=== PATIENT | female | born 1935 | race Caucasian/White ===

== ENCOUNTER 2019-06-26 09:47 | Emergency (ER) | payer MEDICARE, OTHER, SELFPAY ==
--- NOTE | 2019-06-26 09:49 | RAD_ITS ---
STUDY: X-RAY - PELVIS AND LEFT HIP REASON FOR EXAM: Female, 83 years old. FELL ON 06/20 WENT TO [facility] WITH LEFT HIP PAIN. SCANS OF HEAD BACK AND HIP NEGATIVE. PAIN TO HIP INCREASING UNABLE TO AMBULATE NOW HAVING CHEST PAIN TECHNIQUE: 3 views of the pelvis and hip. COMPARISON: None. FINDINGS: There is a non-specific bowel gas pattern. Normal visualized soft tissue structures. Disc space narrowing and degeneration in the lower lumbar spine. Normal bilateral iliac wings, sacroiliac joints and visualized sacrum. Normal bilateral superior and inferior pubic rami. There are degenerative changes of the pubic symphysis with articular narrowing and sclerosis. Normal bilateral ischial tuberosities. Normal visualized femoral head. Normal acetabulum. There is mild articular joint space narrowing of the hip. RAD/HIP, UNI W/ Pelvis 2-3 Views IMPRESSION: Degenerative changes. No fracture is seen. Electronically Signed: Reji Bonner, at 10:53 EST , Service support ,
--- NOTE | 2019-06-26 09:49 | ED.VIS.INJ ---
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 Reportedly she had a fall on June 20. She was seen at [facility] on Wednesday. Reportedly she had a scan of her head, images of her back and hip which were all determined to be normal. She presents because of inability to ambulate. She is complaining of left hip pain and pelvic pain. Patient is alert and oriented x3. She denies fever, chills night sweats. She denies cardiac respiratory symptoms. She denies GI symptoms. Prior similar symptoms: Yes Recent Illness/Hospitalization: Yes Past Medical History - Allergies and Home Meds Allergies/Adverse Reactions: Allergies No Known Allergies Allergy (Verified 06/26/19 09:54) Primary Care Physician: Justino Alvarado [Primary Care Provider] - Prior records reviewed: No - No old records for review Lives: Alone Alcohol: None Drugs: None Review of Systems General: Denies: Chills, Fever, Sweats Eyes: Denies: Visual changes - bilaterally, Blurred Vision - bilaterally, Diplopia ENT: Denies: Rhinorrhea, Sore throat Cardiovascular: Denies: Chest pain, Palpitations Respiratory: Denies: Dyspnea, Cough, Dyspnea on exertion Gastrointestinal: Denies: Nausea, Vomiting, Diarrhea Musculoskeletal: Reports: Back pain, Extremity Pain. Denies: Myalgias, Arthralgias, Neck pain, Swelling, -, - Neurological: Denies: Headache, Weakness, Parasthesia, Numbness Hematologic: Denies: Easy bruising, Easy bleeding Physical Exam Inital Vital Signs reviewed: Yes General: Well nourished, Well developed Head: Normocephalic, Trauma - There is ecchymosis above the left brow. Eyes: Perrl, EOMI. Negative for: Pale conjunctiva, Scleral icterus ENT: TM's clear, No hemotympanum or drainage, No trauma. Negative for: Nasal trauma, Nasal septal hematoma Neck: Nontender, Full ROM Cardiovascular: Regular rate, Regular rhythm, No murmurs, Normal S1, Normal S2 Respiratory: No distress, CTA bilaterally, Chest nontender Abdomen: Soft, Nontender, Nondistended, Normal bowel sounds Rectal: - - Pain palpation of the left ischio tuberosity and over the left greater trochanteric region. Bruising is noted lateral proximal left thigh. Back: Paraspinal Tenderness. Negative for: Nontender, CVA Tenderness - Right, CVA Tenderness - Left Skin: Normal color, No rash, Trauma Neurological: Alert, Oriented x3, Cranial nerves II-XII grossly intact, Normal Strength, Normal Sensation Psychological: Normal affect - Glascow Coma Scale Eye Opening: Spontaneous Motor: Obeys Commands Verbal: Oriented Coma Scale Total: 15 Diagnostic/Tx/Re-eval Chest X-Ray - ED: Read by ED Physician, - - Your x-ray of the hip reveals no evidence of fracture, subluxation or dislocation of the hip. The pelvis appears normal as well. 06/26/19 09:49 HIP, UNI W/ Pelvis 2-3 Views [RAD] Stat - EKG Initial EKG Interpretation: Sinus Rhythm - Normal sinus rhythm with a ventricular rate of 81. SD interval is 138 ms. QRS duration under 6 ms. QT T duration 402 ms. [place] is normal. The EKG is normal. - Medical Decision Making Pain images from [facility] and will repeat x-rays of the hip here since she is not able to ambulate. Will determine if she had plain films or CT of the hip. If she only had plain films and films today are negative as well will require imaging to evaluate for occult fracture since she will not ambulate. Since staff obtain an EKG because patient complained of left-sided chest pain. Patient was asked when the chest pain started. Chest pain started on June 22 and has been constant according to patient and family. There is no bruising noted to the left or right chest wall. There is no crepitus or subcutaneous air. Breath sounds were reassessed and they are equal. Patient was seen by case management. They request for patient to go home. The casework manager spoke to them about home health care. ED Disposition - Plan for ED Patient: Disposition: Home or Assisted Living Diagnosis: Contusion of left hip, subsequent encounter Instructions: Hip Contusion Referrals: Justino Alvarado [Primary Care Provider] - As Needed
[2019-06-26 09:50] VITALS: BP 178/52; PULSE 86; RESP 19; TEMP 36.4; O2SAT 93; BMI 24.5
--- NOTE | 2019-06-26 09:57 | EKG12_ITS ---
Test Reason : Blood Pressure : / mmHG Vent. Rate : 081 BPM Atrial Rate : 081 BPM P-R Int : 138 ms QRS Dur : 106 ms QT Int : 402 ms P-R-T Axes : 071 -28 068 degrees QTc Int : 466 ms Normal sinus rhythm Leftward Cooks Confirmed by DELMI CONNOLLY, JAYNE ([id number]), editor dictionary MATEUS SINCLAIR ([id number]) on 06/29/2019 1:32:26 PM Referred By: MARCIA Confirmed By:JAYNE AWAD MD
--- NOTE | 2019-06-26 10:02 | ED.RN ---
no old ekg's
[2019-06-26 11:48] VITALS: BP 160/60; PULSE 82; RESP 16; O2SAT 95
--- NOTE | 2019-06-26 12:21 | CM.ED ---
Social Work Consult: Discharge Planning Informant: Dr. Snyder Met with patient and patient son and daughter in room. Introduced self as well as group social worker role. Patient agreeable to meet with this group social worker. Patient currently lives at home alone in a 2-story home with x3 steps to enter the home. Patient had a fall about a week ago and patient family has been providing 24hr care since the fall. Patient stating to now ambulate with a walker or use a wheelchair for mobility. Patient stating to not have a medical alert system. This group social worker encouraging patient to set up a medical alert button. Patient family stating to be able to continue with 24hr care if patient does not need admission to the hospital as patient does not want to go to a residential. Patient stating to be in pain when moving. This group social worker educating patient and patient family on [employer], community resources, and basket braider list, provided written information on all above including medical alert information. Patient plans to discharge to home with family for continued 24hr care. Fox SHARIF, ECTOR
[2019-06-26 14:16] VITALS: PULSE 70; RESP 20; O2SAT 95
[2019-06-26 16:11] VITALS: BP 160/89; PULSE 89; RESP 16; O2SAT 98
== END 2019-06-26 16:11 | disposition home or self-care (01) ==
PROVIDERS: Emergency Provider Emergency Medicine; PCP Family Medicine
DX: S70.02XA Contusion of left hip, initial encounter (principal); R07.9 Chest pain, unspecified; W19.XXXA Unspecified fall, initial encounter; Y93.89 Activity, other specified; Y92.89 Other specified places as the place of occurrence of the external cause; Y99.8 Other external cause status
CPT/HCPCS: 73502; 93005; 99284; A4216

== ENCOUNTER 2019-06-30 19:12 | Inpatient (IN) | payer MEDICARE, OTHER, SELFPAY ==
[2019-06-30 19:13] VITALS: BP 135/60; PULSE 80; RESP 16; TEMP 36.3; O2SAT 93; BMI 20.1
--- NOTE | 2019-06-30 20:27 | HP.PCM_ITS ---
Problem List (1) Acetabular fracture Status: Acute Qualifiers: Encounter type: initial encounter Fracture type: closed Laterality: left (2) Inferior pubic ramus fracture Status: Acute Qualifiers: Encounter type: initial encounter Laterality: left History of Present Illness Date of Admission: 06/30/19 Chief Complaint: LEFT HIP PAIN The patient is a 83 year old F with a significant history of breast cancer status post surgery who fell about 10 days ago and was evaluated at [place] ED. Further he was seen at the hospital on 06/26/2019 where a hip and pelvis x- ray was unremarkable. Because of persistent pain patient went to her PCP who ordered a CT of her left hip. The CT showed left inferior pubic rami's fracture and medial lucency about the middle aspect of the acetabulum which was concerning for incomplete fracture versus nutrient foramen. Patient complained of excruciating left hip pain when she moves. Pain improves with rest. When she moves her pain is 10 out of 10. Because of the pain she is unable to do her activities of daily living. Patient lives by herself but with her recent fall and pain in her hip; her family has been coming over to help her. However her family, can not keep helping her since her family has to work. Past Medical History Medical History: Medical History (Last Reviewed 07/01/19 @ 02:13 by Newton Kapoor MD) Breast cancer C50.919 Allergies No Known Allergies Allergy (Verified 06/30/19 19:13) Home Medications: Ambulatory Orders Medication Instructions Recorded NK 06/26/19 Surgical History: appendectomy, - - surgery for breast cancer; Hemorrhoids surgery; oophrectomy (one ovary) Lives: Alone Smoking Status: Former smoker - last smoked about ten days ago Alcohol: None - *Family History Maternal History Items: Cancer Paternal History Items: - - Patient does not know of any paternal medical history Review of Systems Constitutional: Denies: Chills, Fever, Weight Change HEENT: Denies: Head Aches, Sinus Congestion, Sinus Drainage Cardiovascular: Reports: Edema - left ankle. Denies: Chest Pain, Palpitations Respiratory: Denies: Cough, Shortness of breath at rest, Sputum production Gastrointestinal: Denies: Abdominal Pain, Nausea, Vomiting Genitourinary: Denies: Dysuria Musculoskeletal: Reports: Joint Pain - left hip. Denies: Joint Tenderness Skin: Denies: Rash, Wounds Neurological: Denies: Numbness, Tingling, Focal weakness Psychiatric: Denies: Anxiety, Depression, Homicidal Ideations, Suicidal Ideations Hematologic/ Lymphatic: Denies: Easy Bruising, Easy Bleeding VTE Information - Inpt Only VTE Present on Admission: No VTE Mechan Device Prophylaxis: None VTE Pharm Prophylaxis ordered?: Yes Patient Problems: Active and Suspected Problems (Last Updated 06/30/19 @ 21:09 by Newton Kapoor MD) Acetabular fracture (Acute) Inferior pubic ramus fracture (Acute) - Physical Exam Vitals/I&O's: Vital Signs Temp Pulse Resp BP Pulse Ox 97.3 F L 80 16 135/60 H 93 06/30/19 19:13 06/30/19 19:13 06/30/19 19:13 06/30/19 19:13 06/30/19 19:13 Oxygen Delivery Method Room Air Weight: 49.895 kg Body Mass Index (BMI) 20.1 General: Alert, Oriented x3, Cooperative HEENT: Atraumatic, PERRLA, EOMI, Normocephalic Neck: Supple, No JVD, Negative Carotid Bruits Lungs: Clear to auscultation, Normal air movement Cardiovascular: Regular rate, Normal S1, Normal S2, No murmurs Abdomen: Bowel Sounds Present, Soft, Non Tender Extremities: Capillary Refill Less than 3 Seconds, Edema - left ankle, mild Skin: No rashes, No breakdown Musculoskeletal: No Tenderness to Palpation of Joints or Extremities Neurological: Cranial nerves II-XII grossly intact Psych/Mental Status: Normal Affect, Appropriate Assessment/Plan All Active Problems (Last Updated 06/30/19 @ 21:09 by Newton Kapoor MD) Acetabular fracture (Acute) Inferior pubic ramus fracture (Acute) The patient is a 83 year old F with a significant history of breast cancer status post surgery who fell about 10 days ago and with left inferior pubic rami's fracture and linear leniency about the medial aspect of the acetabulum concerning for incomplete fracture versus nutrient foramen. Left inferior pubic rami's fracture and probably incomplete left acetabulum Differential for incomplete left acetabulum fracture is nutrient foramen. Emergency department reported discussing the case with Dr. Bennett who recommended toe-touch weightbearing to left lower extremity. PT and OT to work with patient. Patient may need rehabilitation. Case management consult. Will place on scheduled Tylenol and PRN oxycodone. Offer oxycodone prior to PT and OT. Antiemetics and bowel protocol in place in the setting of starting narcotics. DVT Prophylaxis Subcutaneous Lovenox Code Visit OBSV E&M: 29712 Initial observation care L2
[2019-06-30 20:37] LABS: Absolute Lymphocyte Count 2.16 X10^3/uL (0.83-4.51); Absolute Neutrophil Count 4.9 X10^3/uL (2.0-7.7); Basophil# 0.04 X10^3/uL; Basophil% 0.5 % (0-1); Eosinophil# 0.35 X10^3/uL; Eosinophils% 4.2 % (0-5); Hematocrit 33.4 % (37-47); Hemoglobin 10.8 g/dL (12.0-15.0); Lymphocyte # 2.16 X10^3/ul (4.0); Lymphocyte % 26.2 % (19-41); Mean Corp Hgb Conc 32.3 g/dL (32-36); Mean Corpuscular Hgb 31.2 pg (27.0-32.0); Mean Corpuscular Volume 96.5 fL (81-99); Mean Platelet Vol. 9.3 fl (6.2-12.0); Monocyte# 0.76 X10^3/uL; Monocyte% 9.2 % (0-10); NRBC Flagged by Analyzer 0 % (0-5); Neutrophil # 4.91 X10^3/uL (2.7-7.7); Neutrophil % 59.4 % (47-70); Platelet Count 378 K/mm3 (150-450); RBC Distribution Width SD 46.1 fl (35.1-43.9); Red Blood Count 3.46 M/mm3 (4.2-5.4); White Blood Count 8.3 K/mm3 (4.4-11.0)
[2019-06-30 20:51] LABS: Anion Gap 4 (5-15); BUN 22 mg/dL (7-18); BUN/Creat Ratio 22.8 RATIO (10-20); Calcium,Total 9.4 mg/dL (8.5-10.1); Chloride 109 mmol/L (98-107); Creatinine, Serum 0.96 mg/dL (0.55-1.02); EST Glomerular Filtration Rate 59 mL/min (>60); Est Glom Filt Rate - Afr Amer 71 mL/min (>60); Estimated Creatinine Clearance 34.97 ml/min; Glucose 102 mg/dL (74-106); Sodium Level 142 mmol/L (136-145)
[2019-06-30 21:24] VITALS: BMI 22.2
[2019-06-30 22:02] VITALS: BP 157/64; PULSE 77; RESP 18; TEMP 36.9; O2SAT 93
[2019-06-30] MEDS: oxyCODONE 5 MG Tablet PO (22:19)
[2019-07-01] VITALS (9 sets, daily range): BP systolic 131–150; BP diastolic 47–64; PULSE 71–83; RESP 18; TEMP 36.7–37.2; O2SAT 87–98
[2019-07-01] MEDS: Acetaminophen 500 MG Tablet PO ×5 (00:44→23:50)
--- NOTE | 2019-07-01 01:29 | ED.VIS.GEN ---
History of Present Illness Chief Complaint: Lower Extremity Injury Informant: Patient, Family Onset: Days - 10 Narrative: Sent in by PCP for abnormal CT reporting from family pelvic fracture and left hip fracture. Mechanical fall 10 days ago at home. slip on kitchen. Baseline no ambulatory assistance, lives alone. Family has been with patient since fall, now using walker. Seen at [place] [facility] 3 days later, reports head CT xrays negative. Came to [place] ED 4 days ago with persistent left hip pain re-evaluated, reports re xray with no fracture. Patient went home after eval by case management with planned HHC. This has not been started per family. Patient has been able to ambulate, however, increasing pain. Seen PCP today, CT scan order reported results from [facility]. No new falls, no anticoagulants. Reports Rx norco written by PCP, has not taken. Review of reported obtained from [facility] notes left inferior pelvic rami fracture and questionable acetabular fracture vs. nutrient vessel. Prior similar symptoms: No Past Medical History - Allergies and Home Meds Allergies/Adverse Reactions: Allergies No Known Allergies Allergy (Verified 06/30/19 19:13) Past Medical History: - - denies Surgical History: appendectomy, - - surgery for breast cancer; Hemorrhoids surgery; oophrectomy (one ovary) Lives: Alone Smoking Status: Current every day smoker Alcohol: None - Family History Maternal Family History: Reports: Cancer Paternal Family History: Reports: - - Patient does not know of any paternal medical history Review of Systems General: Denies: Chills, Fever, Sweats Eyes: Denies: Visual changes - bilaterally, Diplopia ENT: Denies: Rhinorrhea, Sore throat Cardiovascular: Denies: Chest pain, Palpitations Respiratory: Denies: Dyspnea, Cough, Dyspnea on exertion Gastrointestinal: Denies: Abdominal pain, Nausea, Vomiting, Diarrhea, Melena, Hematochezia Genitourinary: Denies: Dysuria, Hematuria, Frequency Musculoskeletal: Reports: Arthralgias. Denies: Back pain, Extremity Pain Skin: Denies: Rash, Wounds Neurological: Denies: Headache, Weakness, Numbness Physical Exam Inital Vital Signs reviewed: Yes General: No Acute Distress, - - thin female Head: Normocephalic, Atraumatic Eyes: Perrl, EOMI ENT: Moist mucous membranes, No rhinorrhea Neck: Supple, Nontender Cardiovascular: Regular rate, Regular rhythm, No murmurs Respiratory: No distress, CTA bilaterally, Chest nontender Abdomen: Soft, Nontender, Nondistended, Normal bowel sounds Back: Nontender, Normal Inspection Extremities: No edema, - - LLE: TTP with hip movent, no deformities. RLE: pain with movement, no deformities. Skin: Normal color, No rash Neurological: Alert, Oriented x3, Cranial nerves II-XII grossly intact, Normal Strength, Normal Sensation Psychological: Normal affect, Normal Mood Diagnostic/Tx/Re-eval Abnormal Lab Results 06/30/19 06/30/19 19:30 19:30 WBC 8.3 RBC 3.46 L Hgb 10.8 L Hct 33.4 L MCV 96.5 MCH 31.2 MCHC 32.3 RDW Std Deviation 46.1 H RDW Coeff of Jamel 13.0 Plt Count 378 MPV 9.3 Immature Gran % (Auto) 0.500 Neut % (Auto) 59.4 Lymph % (Auto) 26.2 Dickens % (Auto) 9.2 Eos % (Auto) 4.2 Baso % (Auto) 0.5 Absolute Neuts (auto) 4.9 Absolute Lymphs (auto) 2.16 Nucleated RBC % 0 Sodium 142 Potassium 4.0 Chloride 109 H Carbon Dioxide 29.0 Anion Gap 4 L BUN 22 H Creatinine 0.96 Estim Creat Clear Calc 34.97 Est GFR (MDRD) Af Amer 71 Est GFR (MDRD) Non-Af 59 L BUN/Creatinine Ratio 22.8 H Glucose 102 Calcium 9.4 - Medical Decision Making After reviewing CT reports, concerns of lucency of acetabulum, d/w ortho Dr. Bennett, no surgical management, toe touch WB with walker. States no MRI required. D/w this with family, they state they work and cannot continue to care at home. Labs obtained. D/w hospitalist, Dr. Kapoor for admission for PT/OT eval and placed placement to rehab. ED Disposition - Plan for ED Patient: Disposition: Acute Care Hospital [facility] Diagnosis: Inferior pubic ramus fracture, possible acetabular fracture
[2019-07-01] MEDS: Enoxaparin 40 MG/0.4 ML Syringe SC (10:34)
--- NOTE | 2019-07-01 11:26 | PN_ITS ---
Patient Problems: Active and Suspected Problems (Last Reviewed 07/01/19 @ 02:13 by Newton Kapoor MD) Acetabular fracture (Acute) Inferior pubic ramus fracture (Acute) Reason for Visit: Follow-up on pelvic fracture Subjective: Patient was seen and examined. She complains of pain on moving. Denies any other complains. Vitals/I&O's: Vital Signs Temp Pulse Resp BP Pulse Ox 98.6 F 71 18 150/57 H 93 07/01/19 10:15 07/01/19 10:15 07/01/19 10:15 07/01/19 10:15 07/01/19 10:43 Oxygen Flow Rate (L/min) 1 Oxygen Delivery Method Room Air Weight: 55.1 kg Body Mass Index (BMI) 22.2 Intake and Output for Last 24 Hours 06/29/19 06/30/19 07/01/19 23:59 23:59 23:59 Intake Total 200 / 200 Output Total 300 / 300 Balance -100 / -100 General: Alert, Oriented x3, Cooperative, No apparent distress, - - cachetic, in mild distress HEENT: Atraumatic, PERRLA, EOMI, Normocephalic Oral: Moist Mucosa Neck: Supple Lungs: Clear to auscultation, Normal air movement Cardiovascular: Regular rate, Regular Rhythm, Normal S1, Normal S2, No murmurs Abdomen: Bowel Sounds Present, Soft, Non Tender, Non-Distended, No Hepato- splenomegaly Extremities: No edema Skin: No rashes, No breakdown Musculoskeletal: No Tenderness to Palpation of Joints or Extremities Lymphatic: No Cervical, Supraclavicular, or Inguinal Adenopathy Neurological: Cranial nerves II-XII grossly intact, Neuro grossly intact Psych/Mental Status: Normal Affect, Appropriate Laboratory Results 06/30/19 19:30: WBC 8.3, RBC 3.46 L, Hgb 10.8 L, Hct 33.4 L, MCV 96.5, MCH 31.2, MCHC 32.3, RDW Std Deviation 46.1 H, RDW Coeff of Jamel 13.0, Plt Count 378, MPV 9.3, Immature Gran % (Auto) 0.500, Neut % (Auto) 59.4, Lymph % (Auto) 26.2, [place] % (Auto) 9.2, Eos % (Auto) 4.2, Baso % (Auto) 0.5, Absolute Neuts (auto) 4.9, Ab solute Lymphs (auto) 2.16, Nucleated RBC % 0 06/30/19 19:30: Sodium 142, Potassium 4.0, Chloride 109 H, Carbon Dioxide 29.0, Anion Gap 4 L, BUN 22 H, Creatinine 0.96, Estim Creat Clear Calc 34.97, Est GFR (MDRD) Af Amer 71, Est GFR (MDRD) Non-Af 59 L, BUN/Creatinine Ratio 22.8 H, Glucose 102, Calcium 9.4 Current Medications Acetaminophen (Tylenol) 500 mg PO Q6 [facility] Last Admin: 07/01/19 06:16 Dose: 500 mg Documented by: Enoxaparin Sodium (Lovenox) 40 mg SC DAILY [facility] Last Admin: 07/01/19 10:34 Dose: 40 mg Documented by: Glucagon () 1 mg IM .X1 PRN PRN Reason: Hypoglycemia Dextrose (Dextrose 10%-Water) 250 mls @ 999 mls/hr IV .Q16M PRN; Protocol PRN Reason: HYPOGLYCEMIA Ondansetron HCl (Zofran) 4 mg IV Q8H PRN PRN PRN Reason: NAUSEA/VOMITING Oxycodone HCl (Oxyir) 5 mg PO Q4H PRN PRN PRN Reason: Pain Score 4-10/10 Last Admin: 06/30/19 22:19 Dose: 5 mg Documented by: Senna/Docusate Sodium (Senokot-S, Sharri-Colace) 2 tablet PO BID PRN PRN PRN Reason: Constipation Sodium Chloride () 10 - 40 ml IV UD PRN PRN Reason: SALINE FLUSH STROKE Vital Signs/Narrative: Vital Signs Temp Pulse Resp BP Pulse Ox 07/01/19 10:43 93 07/01/19 10:36 96 07/01/19 10:15 98.6 F 71 18 150/57 H 98 07/01/19 07:45 95 Medical Necessity - Tobacco Use Smoking Status: Current every day smoker Tobacco Use: Cigarettes Assessment/Plan All Active Problems (Last Reviewed 07/01/19 @ 02:13 by Newton Kapoor MD) Acetabular fracture (Acute) Inferior pubic ramus fracture (Acute) 1. Left inferior pubic rami's fracture, probable incomplete left acetabulum, pain is controlled Conservatively being managed; orthopedics recommended toe-touch weightbearing to left lower extremity. PT/OT to evaluate and treat Patient appears open to discharge for short term rehab 2. Uncontrolled hypertension, no hx of Hypertension, likely secondary to pain Will monitor for now 3. DVT PPx- Lovenox SC Code Visit Inpatient E&M: 77154 Subs Hosp L2
[2019-07-01] MEDS: oxyCODONE 5 MG Tablet PO (21:41)
[2019-07-02] VITALS (7 sets, daily range): BP systolic 118–135; BP diastolic 54–61; PULSE 66–83; RESP 16–18; TEMP 36.6–36.9; O2SAT 92–95
[2019-07-02] MEDS: Acetaminophen 500 MG Tablet PO ×4 (06:26→23:10)
[2019-07-02] MEDS: Enoxaparin 40 MG/0.4 ML Syringe SC (09:49)
--- NOTE | 2019-07-02 10:00 | PCM.PN.HOSP ---
Patient Problems: Active and Suspected Problems (Last Reviewed 07/01/19 @ 02:13 by Newton Kapoor MD) Acetabular fracture (Acute) Inferior pubic ramus fracture (Acute) Reason for Visit: Follow-up on pelvic fracture Subjective: Patient was seen and examined. She has pain on movement. Denies chest pain or dizziness or palpitation. Objective: Physical exam: General: Alert, Oriented x3, Cooperative, No apparent distress, - - cachetic, remains on 2L oxygen HEENT: Atraumatic, PERRLA, EOMI, Normocephalic Oral: Moist Mucosa Neck: Supple Lungs: Clear to auscultation, Normal air movement Cardiovascular: Regular rate, Regular Rhythm, Normal S1, Normal S2, No murmurs Abdomen: Bowel Sounds Present, Soft, Non Tender, Non-Distended, No Hepato-splenomegaly Extremities: No edema Skin: No rashes, No breakdown Musculoskeletal: No Tenderness to Palpation of Joints or Extremities Lymphatic: No Cervical, Supraclavicular, or Inguinal Adenopathy Neurological: Cranial nerves II-XII grossly intact, Neuro grossly intact Psych/Mental Status: Normal Affect, Appropriate Vitals/I&O's: Vital Signs Temp Pulse Resp BP Pulse Ox 98.4 F 83 18 118/54 L 93 07/02/19 09:44 07/02/19 09:44 07/02/19 09:44 07/02/19 09:44 07/02/19 09:44 Oxygen Flow Rate (L/min) 2 Oxygen Delivery Method Nasal Cannula Weight: 55.1 kg Body Mass Index (BMI) 22.2 Intake and Output for Last 24 Hours 06/30/19 07/01/19 07/02/19 23:59 23:59 23:59 Intake Total 680 / 880 300 / 300 Output Total 1200 / 1300 400 / 400 Balance -520 / -420 -100 / -100 Current Medications Acetaminophen (Tylenol) 500 mg PO Q6 [facility] Last Admin: 07/02/19 06:26 Dose: 500 mg Documented by: Enoxaparin Sodium (Lovenox) 40 mg SC DAILY [facility] Last Admin: 07/02/19 09:49 Dose: 40 mg Documented by: Glucagon () 1 mg IM .X1 PRN PRN Reason: Hypoglycemia Dextrose (Dextrose 10%-Water) 250 mls @ 999 mls/hr IV .Q16M PRN; Protocol PRN Reason: HYPOGLYCEMIA Ondansetron HCl (Zofran) 4 mg IV Q8H PRN PRN PRN Reason: NAUSEA/VOMITING Oxycodone HCl (Oxyir) 5 mg PO Q4H PRN PRN PRN Reason: Pain Score 4-10/10 Last Admin: 07/01/19 21:41 Dose: 5 mg Documented by: Senna/Docusate Sodium (Senokot-S, Sharri-Colace) 2 tablet PO BID PRN PRN PRN Reason: Constipation Sodium Chloride () 10 - 40 ml IV UD PRN PRN Reason: SALINE FLUSH STROKE Vital Signs/Narrative: Vital Signs Temp Pulse Resp BP Pulse Ox 07/02/19 09:44 98.4 F 83 18 118/54 L 93 Medical Necessity - Tobacco Use Smoking Status: Current every day smoker Tobacco Use: Cigarettes Assessment/Plan All Active Problems (Last Reviewed 07/01/19 @ 02:13 by Newton Kapoor MD) Acetabular fracture (Acute) Inferior pubic ramus fracture (Acute) 1. Left inferior pubic rami's fracture, probable incomplete left acetabulum, pain is controlled Conservatively being managed; orthopedics recommended toe-touch weightbearing to left lower extremity. PT/OT to evaluate and treat Patient appears open to discharge for short term rehab 2. Uncontrolled Bp, better controlled now, will continue to monitor 3. Hypoxia likely secondary to atelectasis, CXR negative for acute infiltrates Encourage use of incentive spirometer 4. DVT PPx- Lovenox SC 5. Disposition: DC to SNF when bed is ready; social work/case management consulted Code Visit Inpatient E&M: 03723 Subs Hosp L2
--- NOTE | 2019-07-02 12:45 | RAD_ITS ---
STUDY: X-RAY CHEST REASON FOR EXAM: Female, 83 years old. sob TECHNIQUE: AP COMPARISON: None. FINDINGS: Status post right mastectomy. The lungs are clear and expanded. There is no demonstrated pleural abnormality. Normal size heart. Normal mediastinum and diomedes. Normal visualized pulmonary arteries. There is atherosclerotic calcification of the aortic arch with tortuosity. There is a levoscoliosis of the thoracic spine. Normal visualized ribs, clavicles, and shoulders. There is no demonstrated abnormality of the visualized soft tissue structures of the upper abdomen. RAD/Chest 1 View (Portable) IMPRESSION: Nonacute portable x-ray examination of the chest. Electronically Signed: Cecilio Hicks MD ([place]) at 14:34 EST , Service support ,
[2019-07-03 03:15] VITALS: BP 146/68; PULSE 70; RESP 16; TEMP 36.4; O2SAT 97
[2019-07-03 03:26] VITALS: RESP 16; O2SAT 97
[2019-07-03] MEDS: Acetaminophen 500 MG Tablet PO ×2 (06:27→11:56)
[2019-07-03 08:30] VITALS: BP 124/51; PULSE 97; RESP 18; TEMP 36.6; O2SAT 92
[2019-07-03] MEDS: Enoxaparin 40 MG/0.4 ML Syringe SC (08:33)
--- NOTE | 2019-07-03 10:57 | CASEMGMT ---
Addendum entered by Sadia Quesada 07/03/19 11:42: Pt is discharging to [facility] today. ROSA updated Alida with [facility]. Plan: RU today Original Note: Social Work Assessment Referral Date: 07/03/2019 Date of Assessment: 07/03/2019 Reason for consult: SNF vs RU Informant: SW Personal Status: SW met with pt and introduced self and role at [facility]. Pt is alert and orientated x3. Pt states that she lives alone in a two story home with first floor set up. Pt states that she hasn't been to her second floor in about six months. DME include walker, wheelchair, crutches. Pt state that he was previously independent with ALDs, states no longer drives but has close family that is able to transport her. PCP is Dr. Justino Alvarado in [facility] and [facility]. Mental Health: Pt denied Substance abuse Pt states that she used to smoke cigarettes but quit 12 days ago. Pt states that before she quit she was smoking half a pack a day. Pt denied any additional substance abuse. SW spoke with pt regarding HHC, SNF, RU. Pt states that she will be going home. SW spoke with pt regarding HHC. Pt states that she would be agreeable to going home with HHC. SW then spoke with PT who states pt would benefit from RU as pt was not able to complete toe touch weightbearing status. ROSA placed a call to Alida with [facility] who states RU is able to accept pt. SW back in to speak with pt and updated pt on PT recommendations and RU. Pt agreeable to RU. SW updated physician. Plan: RU when medically cleared Sadia Quesada [employer]ING [employer]CH[employer]IC, [employer]
--- NOTE | 2019-07-03 11:21 | DCINST_ITS ---
- Discharge Diagnoses Current Active Problems: Current Active and Chronic Problems (Last Reviewed 07/01/19 @ 02:13 by Newton Kapoor MD) Acetabular fracture (Acute) Inferior pubic ramus fracture (Acute) You will use the following diet at home:: No restrictions Your food should be the consistency of: Regular Discharge Activity: Return to Normal Activity Allergies/Adverse Reactions: Allergies No Known Allergies Allergy (Verified 06/30/19 19:13) Medications to take at Discharge Acetaminophen [Tylenol] 500 mg PO Q6 tab 07/03/19 Enoxaparin [Lovenox] 40 mg SUBCUT DAILY syringe 07/03/19 Senna/Docusate Sodium [Senokot-S] 2 tab PO BID PRN PRN tab 07/03/19 Primary Care Physician: Justino Alvarado [Primary Care Provider] - Please follow up with your Primary Care Physician in: IN 2 WEEKS Test Results: Test results from this visit will be discussed in further detail at your follow- up appointment, if applicable. Proposed Discharge Date: 07/03/19
--- NOTE | 2019-07-03 11:26 | PCM.DC.SUM ---
Discharge Date and Diagnosis - Problem List Patient Problems: Active and Suspected Problems (Last Reviewed 07/01/19 @ 02:13 by Newton Kapoor MD) Acetabular fracture (Acute) Inferior pubic ramus fracture (Acute) Date of Admission: 06/30/19 Date of Discharge: 07/03/19 - Primary Discharge Diagnosis Active and Suspected Problems (Last Reviewed 07/01/19 @ 02:13 by Newton Kapoor MD) Acetabular fracture (Acute) Inferior pubic ramus fracture (Acute) Hospital Course and Treatment Summary of Care Provided: The patient is a 83 year old F with a fall 1. Fall with left inferior pubic rami fracture and suspected incomplete left acetabulum fracture. Patient admitted to regular nursing floor managed conservatively with pain management PT OT has evaluated. Patient was seen in consultation by orthopedic surgery recommended nonsurgical treatment at this point. Patient was transferred to the inpatient rehab unit following stabilization of her medical condition 2. Elevated blood pressure suspected to be secondary to pain patient BP had stabilized at the time of discharge 3. Hypoxia secondary to atelectasis checks x-ray was unremarkable did encourage use of incentive spirometry 4. DVT prophylaxis; Lovenox Patient Problems: Active and Suspected Problems (Last Reviewed 07/01/19 @ 02:13 by Newton Kapoor MD) Acetabular fracture (Acute) Inferior pubic ramus fracture (Acute) - Physical Exam Vitals/I&O's: Vital Signs Temp Pulse Resp BP Pulse Ox 97.8 F 97 18 124/51 H 92 07/03/19 08:30 07/03/19 08:30 07/03/19 08:30 07/03/19 08:30 07/03/19 08:30 Oxygen Flow Rate (L/min) 2 Oxygen Delivery Method Room Air Weight: 55.1 kg Body Mass Index (BMI) 22.2 Intake and Output for Last 24 Hours 07/01/19 07/02/19 07/03/19 23:59 23:59 23:59 Intake Total 680 / 880 1190 / 1190 100 / 100 Output Total 1200 / 1300 1150 / 1150 200 / 200 Balance -520 / -420 40 / 40 -100 / -100 General: Alert HEENT: Atraumatic Lungs: Clear to auscultation Cardiovascular: Regular rate, Regular Rhythm Neurological: Neuro grossly intact Psych/Mental Status: Normal Affect Current Medications Acetaminophen (Tylenol) 500 mg PO Q6 LILI Last Admin: 07/03/19 06:27 Dose: 500 mg Documented by: Enoxaparin Sodium (Lovenox) 40 mg SC DAILY [facility] Last Admin: 07/03/19 08:33 Dose: 40 mg Documented by: Glucagon () 1 mg IM .X1 PRN PRN Reason: Hypoglycemia Dextrose (Dextrose 10%-Water) 250 mls @ 999 mls/hr IV .Q16M PRN; Protocol PRN Reason: HYPOGLYCEMIA Ondansetron HCl (Zofran) 4 mg IV Q8H PRN PRN PRN Reason: NAUSEA/VOMITING Oxycodone HCl (Oxyir) 5 mg PO Q4H PRN PRN PRN Reason: Pain Score 4-10/10 Last Admin: 07/01/19 21:41 Dose: 5 mg Documented by: Senna/Docusate Sodium (Senokot-S, Sharri-Colace) 2 tablet PO BID PRN PRN PRN Reason: Constipation Sodium Chloride () 10 - 40 ml IV UD PRN PRN Reason: SALINE FLUSH Discharge Diet: No Restrictions Discharge Activity: Return to Normal Activity Home Medications: Medications to take at Discharge Acetaminophen [Tylenol] 500 mg PO Q6 tab 07/03/19 Enoxaparin [Lovenox] 40 mg SUBCUT DAILY syringe 07/03/19 Senna/Docusate Sodium [Senokot-S] 2 tab PO BID PRN PRN tab 07/03/19 Primary Care Physician: Justino Alvarado [Primary Care Provider] - Please follow up with your Primary Care Physician in: IN 2 WEEKS Disposition: Inpt Rehab Unit/Facility Minutes spent on discharge:: 35 Patient Condition:: Stable Medical Necessity - Tobacco Use Smoking Status: Current every day smoker Tobacco Use: Cigarettes Meaningful Use Info Meaningful Use Diagnoses (Choose all that apply): None applicable Code Visit Inpatient E&M: 87006 Disch Hosp
[2019-07-03 11:39] VITALS: O2SAT 91
[2019-07-03 14:25] VITALS: BP 126/52; PULSE 81; RESP 16; TEMP 36.6; O2SAT 92
== END 2019-07-03 15:15 | DRG 535 ==
LOC: ED 19:57 → MS3 20:52
PROVIDERS: Admitting Provider Hospitalist; Emergency Provider Emergency Medicine; PCP Family Medicine; Visit Provider Internal Medicine
DX: S32.592A Other specified fracture of left pubis, initial encounter for closed fracture (principal); S32.402A Unspecified fracture of left acetabulum, initial encounter for closed fracture; J98.11 Atelectasis; W01.0XXA Fall on same level from slipping, tripping and stumbling without subsequent striking against object, initial encounter; Y93.89 Activity, other specified; Y92.000 Kitchen of unspecified non-institutional (private) residence as the place of occurrence of the external cause; Y99.8 Other external cause status; Z85.3 Personal history of malignant neoplasm of breast; F17.210 Nicotine dependence, cigarettes, uncomplicated; R09.02 Hypoxemia; R03.0 Elevated blood-pressure reading, without diagnosis of hypertension
CPT/HCPCS: 71045; 80048; 85025; 97110; 97116; 97162; 97165; 97530; 99251; 99285; 99406; A4216; G0463

== ENCOUNTER 2019-07-03 15:25 | Inpatient (IN) | payer MEDICARE, OTHER, SELFPAY ==
[2019-06-30 21:24] VITALS: BMI 22.2
[2019-07-03 15:40] VITALS: BP 131/67; PULSE 83; RESP 18; TEMP 36.8; O2SAT 92; BMI 21.2
--- NOTE | 2019-07-03 16:25 | HP.PCM_ITS ---
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 She did not have any chemo or radiation (2) Hx of right mastectomy Status: Chronic Comment: November 2017 (3) Tobacco dependence Status: Chronic Comment: started smoking at the age of 55 and she smokes 1/2 PPD. She started smoking to control anxiety. (4) Anxiety Status: Chronic (5) GERD (gastroesophageal reflux disease) Status: Chronic (6) Diverticulosis Status: Chronic (7) Nephrolithiasis Status: Inactive (8) Colon polyps Status: Inactive History of Present Illness Date of Admission: 07/03/19 Chief Complaint: pain and debility caused by a left acetabular fracture and L inf pubic ramus fx The patient is a 83 year old F with a past medical history of tobacco dependence, GERD, ductal carcinoma in situ of the right breast diagnosed in 2017, mastectomy in November 2017, colon polyps and diverticulosis admitted to the Inpatient rehab unit at [facility] on 07/03/2019 for debility secondary to left acetabular fracture and left inferior pubic ramus fracture sustained in a fall for greater than 3 hours of therapy daily with a goal of returning home at or near prior level of independence. The patient lives at home by herself and has 2 steps to get into her house. She has a two-story house but has not been up to the second level in many years. Her bedroom is on the first floor. She has not driven for the past 8 years because she states she does not trust herself to d rive. The patient was independent with ADL's and mobility prior to the fall. She does her own cooking and she does the gardening and takes care of the house by herself. She was seen in consult by Dr. Jean Bennett during her acute hospital stay and treatment will be nonsurgical at this time. 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 She did not have any chemo or radiation Hx of right mastectomy (Chronic) November 2017 Tobacco dependence (Chronic) started smoking at the age of 55 and she smokes 1/2 PPD. She started smoking to control anxiety. Anxiety (Chronic) GERD (gastroesophageal reflux disease) (Chronic) Diverticulosis (Chronic) Medical History: Medical History (Last Reviewed 07/03/19 @ 16:41 by Ana Alvarez DO) Breast cancer C50.919 Allergies No Known Allergies Allergy (Verified 06/30/19 19:13) Home Medications: Ambulatory Orders Medication Instructions Recorded Acetaminophen [Tylenol] 500 mg PO Q6 tab 07/03/19 Enoxaparin [Lovenox] 40 mg SUBCUT DAILY syringe 07/03/19 Senna/Docusate Sodium [Senokot-S] 2 tab PO BID PRN PRN tab 07/03/19 Surgical History: appendectomy, cholecystectomy, tonsillectomy, - - surgery for breast cancer; Hemorrhoids surgery; oophrectomy (one ovary), carpal tunnel release on the right, colonoscopy with polyp removal, bilateral cataract extraction Psychiatric History: Anxiety - not treated for this.....she started smoking at the age of 55 to control this Lives: Alone Smoking Status: Current every day smoker Tobacco Use: Cigarettes Alcohol: None Drugs: None - *Family History Maternal History Items: Cancer Paternal History Items: - - Patient does not know of any paternal medical history Sibling History Items: Cancer - Sister with breast cancer, Heart Disease - Brother is with heart disease Review of Systems Constitutional: Reports: - - Weight has been stable over the past year. Denies: Chills, Fever, Weight Change Eyes: Denies: Blurred vision HEENT: Reports: Difficulty Hearing, Hard of Hearing. Denies: Difficulty Swallowing, Ear Pain, Head Aches, Sinus Congestion, Sinus Drainage, Sore Throat Cardiovascular: Reports: Chest Pain - R lateral chest when she coughs.....she stated she struck her chest wehn she fell.. Denies: Edema, Palpitations Respiratory: Reports: Cough - occasional, Shortness of Breath, Shortness of breath upon exertion. Denies: Shortness of breath at rest, Sputum production, Wheezing Gastrointestinal: Reports: Constipation. Denies: Abdominal Pain, Diarrhea, Dyspepsia, Nausea, Vomiting Genitourinary: Denies: Dysuria, Urgency Gynecological: Reports: Breast symptoms - left breast pain since she fell Musculoskeletal: Reports: - - pain in the left hip prior to the recent fall and now this is worse since fractured the acetabulum and the inferior left pubic ramus. Denies: Joint Pain, Joint Tenderness Skin: Reports: Dryness. Denies: Jaundice, Lesions, Pruritis, Rash, Wounds Neurological: Denies: Blurred vision, Slurred speech, Confusion, Difficulty swallowing, Focal weakness, Numbness, Tingling, Tremor, Seizures Psychiatric: Denies: Anxiety, Depression, Homicidal Ideations, Suicidal Ideations Endocrine: Denies: Hx of Thyroiditis Hematologic/ Lymphatic: Denies: Easy Bruising, Easy Bleeding, Hx of blood clot VTE Information - Inpt Only VTE Present on Admission: No VTE Mechan Device Prophylaxis: Knee High SHEREE Hose VTE Pharm Prophylaxis ordered?: Yes - Physical Exam Vitals/I&O's: Vital Signs Temp Pulse Resp BP Pulse Ox 98.3 F 83 18 131/67 H 92 07/03/19 15:40 07/03/19 15:40 07/03/19 15:40 07/03/19 15:40 07/03/19 15:40 Oxygen Delivery Method Room Air Weight: 115 lb 15.41 oz Body Mass Index (BMI) 21.2 General: Alert, Oriented x3, Cooperative, No apparent distress, Well developed, Well nourished HEENT: Atraumatic, PERRLA, EOMI, Normocephalic Oral: Dry Mucosa Neck: Supple, No JVD, Negative Carotid Bruits, No Nodes, Trachea Midline, - - Brisk carotid upstroke with good pulse volume Lungs: Rales - she has coarse crackles on the R anteriorly that resolved mostly after a few deep breaths Cardiovascular: Regular rate, Regular Rhythm, Normal S1, Normal S2, No murmurs, No Ectopic Activity, No rub noted, No Gallop Abdomen: Bowel Sounds Present, Soft, Non Tender, Non-Distended, No Hepato- splenomegaly, - - No guarding with palpation Extremities: No clubbing, No cyanosis, No edema, No Calf Tenderness, Peripheral Pulses Normal Skin: No rashes, No breakdown Musculoskeletal: Arthritic Changes Neurological: Cranial nerves II-XII grossly intact, Neuro grossly intact Psych/Mental Status: Normal Affect, Appropriate Assessment/Plan All Active Problems (Last Reviewed 07/03/19 @ 16:41 by Ana Alvarez DO) Acetabular fracture (Acute) Inferior pubic ramus fracture (Acute) Impressions 1. Debility due to left acetabulum and left inferior pubic ramus fractures sustained in a fall 2. Normochromic normocytic anemia-more likely than not secondary to pelvic bleeding related to acute pelvic fracture 3. Clinically dehydrated on physical exam with an elevated BUN/creatinine ratio at 22.8 4. Tobacco dependence 5. R anterior chest pain since recent fall. hurts when she coughs 6. Chronic conditions including history of right breast cancer (DCIS)/right mastectomy in November 2017/GERD/hx bilateral cataract extraction/colon polyps/diverticulosis/anxiety on no meds at home PLAN PT for gait stability OT for ADL's Analgesics as needed Bowel protocol Fall precautions Assess for Anxiety/Depression - consider treating anxiety to help with smoking cessation GI prophylaxis with famotidine 20 mg p.o. twice daily DVT prophylaxis with Lovenox 40 mg subcu daily Follow up with Dr. Bennett and Dr. Alvarado following DC from IP Rehab R rib XRAYS WBAT- was ambulating at home prior to the fall without and AD but, she has a walker and a WC at home She does not have grab bars at home Code Visit Inpatient E&M: 23033 Init Hosp L2
--- NOTE | 2019-07-03 17:17 | REHABEVAL_ITS ---
Admission Information Primary Diagnosis:: Debility secondary to left acetabular fracture and left inferior pubic ramus fracture sustained in a recent fall Status Changes from Prescreening?: No changes Identified Actual Problem List:: Falls, Alteration in Sleep, Mobility Impaired, Self Care Deficit, Fluid Change-Dehydration, Alteration-Leisure Activ. Potential Problem List:: DVT, Bleeding, Infection, UTI, Falls, Skin Integrity, Depression Risk of Complications DVT: LMWH, SHEREE Hose Bleeding: Monitor Lab Values, Nursing to Teach Precautions for anti-coagulation therapy., Wound, if applicable, to be assessed every shift., Stroke patients assessed for lethargy or change in status. Infection: Clinical Staff to Monitor for S/S of infection:, S/S of infection include fever, redness, warmth, etc. Urinary Tract Infection: Monitor for frequency, burning, discomfort, or incontinence., Nursing will obtain urine sample for urinalysis and C&S when ordered. Aspiration: Clinical staff will monitor for coughing, drooling, congestion., Speech will evaluate swallowing and dsyphasia., Nursing will monitor patient swallowing during meals. Falls: Patient will be evaluated for Fall Precautions, Patient will be placed on Fall Precautions as indicated per protocol. Skin Breakdown: Nursing will assess skin daily using assessment tool., Nursing will place on Skin Breakdown Precautions as indicated. Pain: Clinical staff will assess patient's pain level per protocol., Medications will be given, if needed, and the pain level reassessed., Other methods: Massage, distraction, decrease stimulus, etc. used PRN. Plan of Care Patient requires physician specializing in physical medicine and rehab oversight to provide close medical supervision of rehab issues including: Pain Management, Sleep Problems, Bowel and Bladder, Medical and co-morbidity Management, DVT prophylaxis, Rehabilitation Leadership, Coordination of treatment team Patient needs Physical Therapy: For a minimum of 1 hour, At least 5 out of 7 days Patient needs Physical Therapy to improve:: Mobility, Mobility, Mobility, Strengthening, Transfers, Stretching, ROM, Endurance, Stairs, Gait, Balance Patient needs Occupational Therapy: For a minimum of 1 hour, At least 5 out of 7 days Patient needs Occupational Therapy to improve ADL's incl.: Eating, Grooming, Bathing, Dressing, Toileting, Toilet transfers, Community Reintegration, Higher functioning activities, Household tasks, Adaptive Equipment, Splinting, Other activities as determined Patient requires 24/ Rehabilitation Nursing for: Pain Issues, Identifying and preventing risk factors, Monitoring and reporting current medical conditions, Assisting with ambulation, transfer, and all ADL's, Teaching patients about disease process and medications, Family teaching, Providing safe environment, Bowel and Bladder Issues, Skin integrity, Medication Management Patient needs Web Applications Administrator/ Case Management for: Discharge Planning, Arranging Home Equipment or Services, Family Interventions Patient needs Dietary and Nutrition Services for: Adequate Nutrition, Nutritional Supplements, Nutritional Education Goals Patient will remain: free from falls, or injury at time of discharge. Patient will perform bed mobility at: MOD I level of assist. Patient will complete transfers from bed to chair at: MOD I level of assist. Patient will ambulate: 100 feet, with MOD I assist, with LRD Patient will complete upper body dressing at: MOD I level of assist. Patient will complete lower body dressing at: MOD I level of assist. Patient will complete toileting at: MOD I level of assist. Patient will perform bathing at: MOD I level of assist. Patient will complete grooming at: MOD I level of assist. Patient will complete home management skills at: MOD I level of assist. Patient will achieve: 12 stairs, at MOD I assist Patient will have pain level of: of 3 or less Patient's skin will: remain intact, free from infection. Patient will receive: adequate nutrition. Discharge Planning Pt Prognosis for Sig. Practical Improv. w/in Reasonable Time: Good Estimated Length of stay (days): 10 Anticipated D/C Destination: Home with Home Health
[2019-07-03] MEDS: Polyethylene Glycol 3350 17 GM PACKET PO (18:11)
[2019-07-03 19:34] VITALS: BP 129/64; PULSE 92; RESP 19; TEMP 36.7; O2SAT 90
[2019-07-03] MEDS: traMADol 50 MG Tablet PO (21:05)
[2019-07-03] MEDS: Famotidine 20 MG Tablet PO (21:05)
[2019-07-03] MEDS: Acetaminophen 500 MG Tablet 1000 MG PO (21:05)
[2019-07-04] VITALS (10 sets, daily range): BP systolic 124–133; BP diastolic 57–66; PULSE 74–80; RESP 18–22; TEMP 36.4–36.6; O2SAT 81–98
[2019-07-04 05:35] LABS: Hematocrit 35.6 % (37-47); Hemoglobin 11.3 g/dL (12.0-15.0); Mean Corp Hgb Conc 31.7 g/dL (32-36); Mean Corpuscular Hgb 30.8 pg (27.0-32.0); Mean Platelet Vol. 9.4 fl (6.2-12.0); Platelet Count 437 K/mm3 (150-450); RBC Distribution Width CV 13.1 % (11.6-14.6); Red Blood Count 3.67 M/mm3 (4.2-5.4); White Blood Count 7.8 K/mm3 (4.4-11.0)
[2019-07-04 05:53] LABS: ALB/GLOB Ratio 0.8 RATIO (0.9-2.4); AST(SGOT) 111 U/L (15-37); Alanine Aminotransfer ALT/SGPT 176 U/L (13-56); Albumin, Serum 3.1 g/dL (3.2-5.0); Alkaline Phosphatase 242 U/L (45-117); Anion Gap 5 (5-15); BUN 24 mg/dL (7-18); BUN/Creat Ratio 26.9 RATIO (10-20); Calcium,Total 9.4 mg/dL (8.5-10.1); Chloride 107 mmol/L (98-107); Creatinine, Serum 0.89 mg/dL (0.55-1.02); EST Glomerular Filtration Rate 64 mL/min (>60); Est Glom Filt Rate - Afr Amer 78 mL/min (>60); Estimated Creatinine Clearance 37.88 ml/min; Globulin 3.8 g/dL (2.2-4.2); Glucose 95 mg/dL (74-106); Protein, Total 6.9 g/dL (6.4-8.2); Sodium Level 140 mmol/L (136-145)
--- NOTE | 2019-07-04 06:33 | NURSING ---
pt holding mid chest after moving to the recliner but denied chest pain of sob. SPO2 taken and was noted to be 82% on ra, bp was 124/57, ap 76 and resp at 22. rn made aware and O2 at 2l/m via n/c was placed on pt. after a period of 5 minutes pt recovered to 90% on 2l of o2. pt continues deny sob or chest discomfort. 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
[2019-07-04] MEDS: Acetaminophen 500 MG Tablet 1000 MG PO ×3 (06:43→21:38)
--- NOTE | 2019-07-04 07:36 | NURSING ---
oxygen increased to 3l/m via n/c pt SPO2 increased to 94% after an hour, rn made aware
[2019-07-04 09:17] LABS: Vitamin D,25 Hydroxy 24.8 ng/mL (29.95-100.01)
[2019-07-04] MEDS: Famotidine 20 MG Tablet PO ×2 (09:48→21:39)
[2019-07-04] MEDS: Polyethylene Glycol 3350 17 GM PACKET PO (09:48)
[2019-07-04] MEDS: Enoxaparin 40 MG/0.4 ML Syringe SC (09:48)
[2019-07-04] MEDS: traMADol 50 MG Tablet PO ×2 (12:18→21:40)
--- NOTE | 2019-07-04 13:50 | PCM.PN.BLA ---
Progress Note Pulse ox this AM was 81% and she was placed on nasal O2 She is afebrile and vital signs are stable. Currently she is 98% on a 4 L nasal cannula. All lab was personally reviewed. White blood cell count is 7.8 and platelets are 437,000. The hemoglobin is 11.3 with an MCV of 97. BUN is 24 with a creatinine of 0.89. LFTs are abnormal. The bilirubin is within normal limits but the AST was 111, ALT was 176 and the alkaline phosphatase was elevated at 242. Vitamin D level is low at 24.8. Phosphorus and magnesium are within normal limits and the calcium is 9.4 with an albumin of 3.1 making the calcium 10.3. Denies shortness of breath, cough, chest pain. No lightheadedness. Tells me her pain is adequately controlled and she does not like to take pills. PHYSICAL EXAM: GENERAL: alert, oriented X 3, Cooperative, NAD ORAL: dry mucosa, no mucosal lesions NECK: No JVD, supple, trachea midline LUNGS: CTA, diminished, symmetric chest expansion, not tachypneic, no conversational dyspnea HEART: RRR, Normal S1 and S2, no rub, no gallop ABDOMEN: soft, NT, ND, BS present, no guarding with palpation EXTREMITIES: no edema, no cyanosis, no calf tenderness SKIN: No rashes, no breakdown NEUROLOGIC: no focal neurologic deficits PSYCH: appropriate, normal affect, pleasant Impressions 1. hypoxemia with exertion and while sleeping. I suspect she has COPD. Will likely need to go home on oxygen. I recommended she follow up with pulmonary as an OP and have PFT's and a sleep study. I also recommend she quit smoking. 2. Abnormal LFT's - etiology? Overnight trending pulse ox. check an ambulatory pulse ox on RA PRN oxygen if the pulse ox is <90% Encouraged her to increase her fluid intake. US of the liver STROKE Vital Signs/Narrative: Vital Signs Pulse Ox 07/04/19 12:51 98 07/04/19 11:34 92 Code Visit Inpatient E&M: 79840 Subs Hosp L2
--- NOTE | 2019-07-04 15:15 | NURSING ---
npo after midnight for liver ultrasound in am. resp therapy called and notified of order for overnight trending pulse ox.
--- NOTE | 2019-07-05 07:30 | US_ITS ---
STUDY: ABDOMINAL ULTRASOUND - RIGHT UPPER QUADRANT REASON FOR VISIT: Female, 83 years old ABN LFT''S -- CHOLECYSTECTOMY 1979 TECHNIQUE: Ultrasound evaluation of the right upper quadrant was performed with real-time and static yoon-scale imaging. TECHNICAL QUALITY: Adequate. COMPARISON: None. FINDINGS: Liver: The liver measures 13.1 cm. There is normal echogenicity of the liver. The bile ducts are within normal limits. There is hepatic color flow. The direction of portal flow is hepatopetal. There is no demonstrated mass lesion. Gallbladder: The patient is status post cholecystectomy. Common Bile Duct (C.B.D.): The common bile duct measures 6.7 mm. Pancreas: Normal size of the head, body and tail of the pancreas. There is normal echogenicity of the pancreas. There is no demonstrated pancreatic mass or cyst. Right Kidney: Normal size of the right kidney. The right kidney measures 9.6 cm x 3.9 cm x 3.6 cm. Normal renal cortex. The right cortex measures 1.0 cm. There is no demonstrated renal mass or cyst. There is no right hydronephrosis. US/Liver IMPRESSION: Normal right upper quadrant ultrasound examination. Status post cholecystectomy. Electronically Signed: Reji Bonner, at 8:48 EST , Service support ,
[2019-07-05] MEDS: Acetaminophen 500 MG Tablet 1000 MG PO ×3 (08:38→21:32)
[2019-07-05] MEDS: Enoxaparin 40 MG/0.4 ML Syringe SC (08:39)
[2019-07-05] MEDS: Polyethylene Glycol 3350 17 GM PACKET PO (08:39)
[2019-07-05] MEDS: Famotidine 20 MG Tablet PO ×2 (08:39→21:31)
[2019-07-05 10:00] VITALS: BP 137/65; PULSE 80; RESP 16; TEMP 36.7; O2SAT 92
[2019-07-05 13:56] VITALS: O2SAT 91
[2019-07-05 21:00] VITALS: BP 125/61; PULSE 82; RESP 18; TEMP 36.6; O2SAT 93
[2019-07-05] MEDS: traMADol 50 MG Tablet PO (21:31)
[2019-07-05 22:00] VITALS: RESP 16
[2019-07-06] MEDS: Acetaminophen 500 MG Tablet 1000 MG PO ×3 (06:39→21:26)
[2019-07-06] MEDS: Enoxaparin 40 MG/0.4 ML Syringe SC (08:09)
[2019-07-06] MEDS: Polyethylene Glycol 3350 17 GM PACKET PO (08:10)
[2019-07-06] MEDS: Famotidine 20 MG Tablet PO ×2 (08:10→21:27)
[2019-07-06 08:34] VITALS: BP 154/65; PULSE 85; RESP 17; TEMP 36.5; O2SAT 90
[2019-07-06] MEDS: traMADol 50 MG Tablet PO ×2 (10:54→21:27)
--- NOTE | 2019-07-06 12:12 | CASEMGMT ---
Social Work IDT met with patient, daughter and son for Team Meeting. Discussed patient's progress in therapy. 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 Pt has TTWBS and having pain. Pt having SOB and requiring 2LPM of O2 with exertion and at night and physician will order for pt to have at home with new dx of COPD. ST is working with pt on cognition, memory, number processing as pt does her own fiancees. Explained Medicare coverage - ELOS 12 days with DC date 07/15. Will ReTeam next week. Will continue to follow. CHANTE FullerW
--- NOTE | 2019-07-06 14:29 | PN_ITS ---
Progress Note Patient was seen on team rounds today. Family was present for rounds. Afebile VSS she is hypoxic with exertion and she is also hypoxic when sleeping. Pulse ox when awake and sitting in a chair is 90-91%. Oral intake is erratic and mostly poor Discussed with nursing - no problems that need addressed Reviewed the PT/OT/ST notes - she has some cognitive dysfunction and especially deficits in complex problem-solving, visual construction and sequencing. She also has difficulty with immediate recall. Medication list reviewed. Right upper quadrant ultrasound was normal. She is status post cholecystectomy. There was no liver mass. Alert and oriented x3, no apparent distress Lungs-diminished with no wheezing or rails Heart-regular rate and rhythm, no gallop, no rub, no murmur Abdomen-soft, nontender, nondistended, normal bowel sounds heard in all 4 quadrants, no guarding No peripheral edema Impressions 1. Debility secondary to traumatic left inferior pubic ramus fracture and acetabular fracture-nonsurgical. Continue therapy 2. Suspected COPD with hypoxemia at night and with exertion. Recommend follow- up with pulmonary for PFTs as an outpatient. Will need oxygen at discharge from rehab Continue PT/OT/ST. Recheck the CMP in a few days Will need pulmonary follow up post DC and will need O2 at DC. Will review the results of the overnight trending pulse ox. Made family aware of difficulties with higher level cognitive dysfunction and hypoxemia/suspected COPD.....answered all questions. Code Visit Inpatient E&M: 96273 Subs Hosp L2
[2019-07-06 22:00] VITALS: BP 125/85; PULSE 70; RESP 18; TEMP 36.4; O2SAT 95
--- NOTE | 2019-07-07 04:31 | NURSING ---
REVIEWED AND AGREE WITH [employer] MECH[employer]IC'S FUNCTIONAL ASSESSMENT AND HANDOFF CHARTING.
[2019-07-07] MEDS: Acetaminophen 500 MG Tablet 1000 MG PO (06:31)
[2019-07-07] MEDS: Enoxaparin 40 MG/0.4 ML Syringe SC (06:32)
[2019-07-07] MEDS: Famotidine 20 MG Tablet PO ×2 (07:50→20:17)
[2019-07-07] MEDS: Polyethylene Glycol 3350 17 GM PACKET PO (07:51)
[2019-07-07 08:44] VITALS: BP 139/53; PULSE 82; RESP 12; TEMP 36.4; O2SAT 92
[2019-07-07 11:55] VITALS: O2SAT 95
--- NOTE | 2019-07-07 12:38 | PCM.PN.BLA ---
Progress Note Afebile VSS Maintaining appropriate oxygen saturation on RA Oral intake is poor Discussed with nursing - no problems that need addressed. When she did her shower with OT yesterday she was 81-83% with exertion on RA Reviewed the PT/OT/ST notes Medication list reviewed. She is only taking the Ultram once a day at bedtime and this is likely because it is scheduled. Despite the Ultram at bedtime she is still not sleeping.....has trouble sleeping and attributes this to not being in her own bed. Denies nausea/vomiting/abdominal pain/dysuria/cough/shortness of breath. She does not feel that she breathes any easier when she is on oxygen. Alert, NAD, oriented X 3 Lungs - CTA, diminished, not tachypneic at rest, no conversational dyspnea H-RRR abd - soft, NT, ND, BS's heard in all 4 quadrants no peripheral edema Impressions 1. L inf pubic ramus fracture and L acetabulum fx - states pain is adequately controlled......she requests meds be decreased. Will DC the Tramadol and make the Tylenol PRN. 2. chronic hypoxic resp failure - no CP and no SOB. I suspect she has COPD....has a 28 year smoking hx. Doubt PE, has been on anticoagulation and has no CP and denies SOB. She seems very comfortable with Pulse ox of 83% ......suspect this is chronic. Refer to pulmonary as OP. 3. Abnormal LFT's. Hx of breast CA diagnosed in 2018. Will obtain Dr. Alvarado's labs for the past year to see if this is acute or chronic. LUQ US was unremarkable. Will need to go home on oxygen. She is progressing very well in therapy. Family will not be able to stay with her at [place] because they work. she has steps to get into the house and there are NO rails. Discussed with family and they will look into making some modifications. Try 0.5 mg Ativan at STROKE Vital Signs/Narrative: Vital Signs Temp Pulse Resp BP Pulse Ox 07/07/19 11:55 95 07/07/19 08:44 97.6 F L 82 12 139/53 H 92 Code Visit Inpatient E&M: 04405 Subs Hosp L1
[2019-07-07 13:00] VITALS: O2SAT 93
[2019-07-07] MEDS: Magnesium Hydroxide 30 ML UDC PO (17:58)
[2019-07-07] MEDS: Bisacodyl 5 MG Tablet 10 MG PO (20:16)
[2019-07-07 22:00] VITALS: BP 127/79; PULSE 86; RESP 16; TEMP 36.8; O2SAT 93
[2019-07-07] MEDS: Bisacodyl 10 MG Suppository RECTAL (23:48)
[2019-07-08] MEDS: traMADol 50 MG Tablet PO (00:25)
--- NOTE | 2019-07-08 02:15 | NURSING ---
49-Confirmed order for soap suds enema from MD Blandon. Enema ineffective as of 219.
--- NOTE | 2019-07-08 02:20 | NURSING ---
1999 pt complaining of discomfort from constipation. pt given milk of magnesia on day shift, pt has no bm. bowel sounds hypoactive. during hs assessment. dulcolax 10 mg oral given at 2015. pt still remains uncomfortable. pt continues to try to have a bm. pt requests rectal suppository and given at 2348. pt remains uncomfortable. holds rectal suppos for 20 minutes. attempts to have a bm, ineffective. pt requests enema at 0030. dr grimm called by RN and order for soap suds enema now ordered at 0050- ineffective as of 219.
[2019-07-08] MEDS: Enoxaparin 40 MG/0.4 ML Syringe SC (06:25)
[2019-07-08 07:00] VITALS: BP 107/53; PULSE 85; RESP 18; TEMP 36.6; O2SAT 92; O2SAT 93
[2019-07-08] MEDS: Famotidine 20 MG Tablet PO ×2 (07:41→20:25)
[2019-07-08 09:30] VITALS: O2SAT 2
[2019-07-08 09:48] LABS: Hematocrit 37.4 % (37-47)
[2019-07-08 10:10] LABS: AST(SGOT) 40 U/L (15-37); Alanine Aminotransfer ALT/SGPT 124 U/L (13-56); Alkaline Phosphatase 298 U/L (45-117); Anion Gap 4 (5-15); BUN 29 mg/dL (7-18); BUN/Creat Ratio 25.9 RATIO (10-20); Calcium,Total 9.9 mg/dL (8.5-10.1); Chloride 106 mmol/L (98-107); Cholesterol 186 mg/dL (200); Creatinine, Serum 1.12 mg/dL (0.55-1.02); EST Glomerular Filtration Rate 49 mL/min (>60); Est Glom Filt Rate - Afr Amer 60 mL/min (>60); Globulin 4.2 g/dL (2.2-4.2); Glucose 109 mg/dL (74-106); High Density Lipoprotein 60 mg/dL; Protein, Total 8.2 g/dL (6.4-8.2); Sodium Level 139 mmol/L (136-145); Triglycerides 168 mg/dL; Very Low Density Lipoprotein 34 mg/dL (5-40)
[2019-07-08 19:00] VITALS: BP 132/94; PULSE 92; RESP 16; TEMP 36.7; O2SAT 92
[2019-07-09] MEDS: Acetaminophen 500 MG Tablet 1000 MG PO (01:30)
[2019-07-09] MEDS: traMADol 50 MG Tablet PO (03:48)
[2019-07-09] MEDS: Enoxaparin 40 MG/0.4 ML Syringe SC (05:15)
[2019-07-09 06:12] LABS: Cholesterol 164 mg/dL (200); High Density Lipoprotein 55 mg/dL; Triglycerides 102 mg/dL; Very Low Density Lipoprotein 20 mg/dL (5-40)
[2019-07-09 07:06] VITALS: BP 133/57; PULSE 97; RESP 16; TEMP 36.7; O2SAT 96
[2019-07-09 07:14] VITALS: O2SAT 96
[2019-07-09] MEDS: Famotidine 20 MG Tablet PO ×2 (07:53→20:35)
[2019-07-09 20:28] VITALS: BP 114/45; PULSE 90; RESP 20; TEMP 36.4; O2SAT 95
[2019-07-10] MEDS: Enoxaparin 40 MG/0.4 ML Syringe SC (05:00)
[2019-07-10 07:40] VITALS: O2SAT 90
[2019-07-10 08:00] VITALS: BP 129/67; PULSE 73; RESP 16; TEMP 36.9; O2SAT 95
[2019-07-10] MEDS: Famotidine 20 MG Tablet PO ×2 (10:42→21:02)
--- NOTE | 2019-07-10 18:41 | PCM.PN.BLA ---
Progress Note Afebile VSS Maintaining appropriate oxygen saturation on RA Oral intake is good. Discussed with nursing - no problems that need addressed Reviewed the PT/OT/ST notes Medication list reviewed. Lab was reviewed. AST and ALT are decreasing towards normal. The alkaline phos remains elevated likely secondary to fracture. Bilirubin is within normal limits. Liver ultrasound was unremarkable. The LDL is 89 and the HDL is 55. Suspect he increased AST ALT and alkaline phosphatase are due to bone and muscle trauma from fall. She tells me her pain is adequately controlled. Denies diarrhea, constipation, shortness of breath. Pulse ox is good on 2 L nasal cannula. Afebrile Blood pressures well controlled Fair oral intake-the creatinine is increased somewhat since admission however she is not drinking enough fluids and she was encouraged to increase her fluid intake Lungs-diminished throughout with no rales and no wheezes or rhonchi Heart-regular rate and rhythm Abdomen-soft, nontender, nondistended, bowel sounds present in all quadrants No peripheral edema Impressions 1. Suspected COPD 2. Chronic respiratory failure with hypoxemia during sleep and exertion-we will need oxygen at discharge 3. Increasing creatinine, due to poor oral intake. Patient was reminded to increase her fluid intake. Continue PT/OT/ST Recheck BMP in a few days.
[2019-07-10 19:38] VITALS: BP 123/56; PULSE 77; RESP 18; TEMP 37; O2SAT 96
[2019-07-11] MEDS: traMADol 50 MG Tablet PO ×2 (05:27→20:13)
[2019-07-11] MEDS: Enoxaparin 40 MG/0.4 ML Syringe SC (05:27)
[2019-07-11 07:17] VITALS: O2SAT 97
[2019-07-11] MEDS: Famotidine 20 MG Tablet PO ×2 (08:08→21:00)
[2019-07-11 08:16] VITALS: BP 134/64; PULSE 58; RESP 16; TEMP 36.9; O2SAT 97
[2019-07-11 19:33] VITALS: O2SAT 97
[2019-07-11 19:38] VITALS: BP 102/50; PULSE 70; RESP 20; TEMP 36.7; O2SAT 92
[2019-07-12] MEDS: Enoxaparin 40 MG/0.4 ML Syringe SC (05:27)
[2019-07-12] MEDS: Famotidine 20 MG Tablet PO ×2 (08:40→20:26)
[2019-07-12 09:21] VITALS: BP 125/64; PULSE 70; RESP 16; TEMP 36.4; O2SAT 90
[2019-07-12] MEDS: traMADol 50 MG Tablet PO (10:21)
--- NOTE | 2019-07-12 12:03 | PCM.PN.BLA ---
Progress Note Afebile Maintaining appropriate oxygen saturation on RA - she is no longer hypoxic with exertion and is maintaining the pulse ox around 93%. Oral intake is fair and has improved some what. wt is stable Discussed with nursing - no problems that need addressed other than continually urging her to drink more fluids. Reviewed the PT/OT/ST notes Medication list reviewed. She is taking the Tramadol usually twice a day for pain. alert, less grumpy, NAD, anxious to get home. Lungs - diminished but, better air exchange than at admission. Not coughing, no labored respirations. H - RRR, no gallop no peripheral edema and no cyanosis abd - soft NT, ND, no guarding with palpation no rashes and no break down. Impressions 1. Debility due to Left inf pubic ramus fracture and fx of the left acetabulum 2. suspected COPD. Would like to see her follow up with pulmonary for PFT's as an OP 3. hypoxemia - improved since she has not been smoking. May need to recheck a overnight tranding pulse ox prior to DC to make sure she is not continuing to desaturate at night while sleeping.......if she is she will need O2 and also a sleep study. 4. dehydration - encouraged her once again to increase her fluid intake. BMP in the AM and orthostatic BP's STROKE Vital Signs/Narrative: Vital Signs Temp Pulse Resp BP Pulse Ox 07/12/19 09:21 97.6 F L 70 16 125/64 H 90 Code Visit Inpatient E&M: 83698 Subs Hosp L2
[2019-07-12 19:24] VITALS: BP 122/53; PULSE 74; RESP 18; TEMP 36.6; O2SAT 94
[2019-07-13] MEDS: traMADol 50 MG Tablet PO (02:16)
--- NOTE | 2019-07-13 03:43 | NURSING ---
REVIEWED AND AGREE WITH [employer]'S FUNCTIONAL ASSESSMENT AND HANDOFF CHARTING.
[2019-07-13] MEDS: Enoxaparin 40 MG/0.4 ML Syringe SC (06:00)
[2019-07-13 06:04] VITALS: BP 109/50; BP 111/67; BP 141/67; PULSE 65; PULSE 70; PULSE 77
[2019-07-13 06:24] LABS: Anion Gap 4 (5-15); BUN 16 mg/dL (7-18); BUN/Creat Ratio 19.4 RATIO (10-20); Calcium,Total 8.9 mg/dL (8.5-10.1); Chloride 105 mmol/L (98-107); Creatinine, Serum 0.83 mg/dL (0.55-1.02); EST Glomerular Filtration Rate 70 mL/min (>60); Est Glom Filt Rate - Afr Amer 85 mL/min (>60); Estimated Creatinine Clearance 40.62 ml/min; Glucose 90 mg/dL (74-106); Potassium 3.7 mmol/L (3.5-5.1); Sodium Level 140 mmol/L (136-145)
--- NOTE | 2019-07-13 06:30 | NURSING ---
when pt was asked about showering this am, pt states that she showered last hs with niece- but did not wash her hair. pt reluctant to shower this am. pt agreeable to shower and wash hair this hs.
[2019-07-13 06:36] VITALS: O2SAT 97
[2019-07-13 07:42] VITALS: BP 114/60; PULSE 68; RESP 18; TEMP 36.7; O2SAT 92
[2019-07-13 07:45] VITALS: O2SAT 96
[2019-07-13] MEDS: Famotidine 20 MG Tablet PO ×2 (07:48→21:05)
[2019-07-13 08:27] VITALS: O2SAT 90
--- NOTE | 2019-07-13 15:35 | CASEMGMT ---
Team Meeting held today with pt and two children present. Pt is progressing well with PT/OT and feels she is ready for discharge tomorrow. Team is agreeable and recommending home health PT. Family stating after team to participate in family training. Written List of home health companies provided. Pt choosing [facility]. Referral made to Cindy at [facility] and they are able to accept pt. Pt now off Oxygen. Overnight Pulse Ox test to be taken tonight to determine if pt will need Home 02 for sleeping. SW will follow to set this up if needed. Pt and family agreeable to d/c plan. Plan: D/C home 07/14/19 with [facility] PT SHARON Munguia
--- NOTE | 2019-07-13 17:02 | CASEMGMT ---
Reviewed and agree with SW equine internship documentation on this date. SHARON Munguia
--- NOTE | 2019-07-13 18:21 | PN_ITS ---
Progress Note Constance was seen on TEAM rounds today and 3 of her family members were present. She remains afebrile She is orthostatic today but she denies lightheadedness. She is 90% at rest on RA and 92-97% on 2 LPM NC. Denies SOB. nOt coughing. she had the pulse ox monitored yesterday afternoon while doing PT and she never dropped below 90% on RA. All lab was personally reviewed. The creat is down to 0.83 from !.12 on 07/08/19. The BUN has also improved and it is 16 today....down from 25. The BUN/CREAT ratio is still 19.4 and this is likely why she is orthostatic. She is not on an antihypertensive. Alert and oriented X 3. Appears in no distress, breathing is not labored. MM are dry Lungs are still diminished but, there is better air exchange than at admission to the rehab unit. No wheezing........I attribute this to the fact that she has not been smoking and she no longer has a cough. HRRR Abd - soft, NT, ND, good bowel function Impressions 1. debility due to traumatic fx of the left inf pubic ramus and the L acetabulum due to a fall 2. orthostatic hypotension due to inadequate intake......this may have contributed to why she fell. 3. Respiratory insufficiency with hypoxemia - not wearing the oxygen during the day and pulse ox has been adequate but, she may still be desaturating at night.......will get a overnight trending pulse ox prior to DC. If she is still desaturating and it is > 5 minutes will need O2 at night and a sleep study as an OP. She will also need to follow up with pulmonary medicine and have PFT's. 4. tobacco dependence in remission - says she will not longer smoke if it means that she does not need oxygen .......her family smells of smoke and it will be hard for her to quit if others around her smoke. I will give her the contact number for the smoking cessation interior design program chair if she has cravings when she goes home. Plan for discharge tomorrow. MOD I now. [facility] at [place]. She has a shower chair and a walker at home......no grab bars......highly recommended this to her family as most accidents at home happen in the BR in the elderly. Code Visit Inpatient E&M: 59450 Subs Hosp L2
[2019-07-13 21:49] VITALS: BP 134/85; PULSE 92; RESP 16; TEMP 36.7; O2SAT 93
--- NOTE | 2019-07-14 03:15 | NURSING ---
pt woke up with a night terror at this time. pt confused and O2 applied for comfort. pt reoriented to place. vital signs taken at this time, WNL. pt ambulated to restroom and back to bed. pt begins to remember more when awake and ambulating. O2 left in place for comfort.
[2019-07-14] MEDS: Enoxaparin 40 MG/0.4 ML Syringe SC (05:09)
[2019-07-14 08:01] VITALS: BP 135/53; PULSE 71; RESP 18; TEMP 36.9; O2SAT 96
[2019-07-14 08:06] VITALS: O2SAT 92
[2019-07-14] MEDS: Famotidine 20 MG Tablet PO (08:08)
[2019-07-14 09:36] VITALS: O2SAT 96
--- NOTE | 2019-07-14 10:43 | CASEMGMT ---
Social Work Pt requires O2 at night per respiratory therapist. Information faxed to [facility] as pt is DCing on this date. Mariah Branch MSW [employer]
--- NOTE | 2019-07-14 12:04 | DCINST_ITS ---
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 She did not have any chemo or radiation Hx of right mastectomy (Chronic) November 2017 Tobacco dependence (Chronic) started smoking at the age of 55 and she smokes 1/2 PPD. She started smoking to control anxiety. Anxiety (Chronic) GERD (gastroesophageal reflux disease) (Chronic) Diverticulosis (Chronic) You will use the following diet at home:: Regular, Other - You should drink at least 1500 cc's a day of liquids. This is 50 ounces a day. About a half gallon. Your food should be the consistency of: Regular Your liquids should be the consistency of: Regular/Thin Discharge Activity: May Not Drive, May Shower, Use Walker, - - activity as tolerated Weight Bearing Status: Partial weight bearing - Left leg Keep extremity elevated above heart level: Left Leg Additional Activity Instructions:: Do your exercises given to you by the therapists twice a day.......this will keep you strong and help prevent falls in the future. Call your doctor if you observe: Fever of 101 or Higher, Numbness or Tingling, Inability to urinate, Inability to have a bowel movement, Shortness of breath, Dizziness, Fainting spells, Swelling in the ankles, Chest pain, Calf discomfort, Uncontrolled pain Instructions: Low Blood Pressure (Hypotension), What Is COPD?, Chronic Lung Disease: Tips for Quitting Smoking, Bone Density Study, What Is Osteoporosis?, Living with Osteoporosis: Preventing Fractures, Living with Osteoporosis: Regular Exercise Additional Instructions: 1. You do not like to drink enough water Constance. this is a problem with many women your age......we do not like to drink a lot because then we have to pee and we may not make it to the bathroom in time. When you get dehydrated from not drinking enough fluids when you sit or stand your blood pressure drops and then you do not get enough blood to the brain and then you get dizzy/lightheaded and sometimes even pass out......this may have been what happened when you fell and broke your pelvis. You need to stay hydrated to prevent falls in the future. Your urine, except in the morning, should be pale yellow....if it is dark yellow or orange then you need to drink more. 2. I think that you have COPD and I have given you some lieterature to read about what COPD is. When you first came to the rehab unit you oxygen dropped into the low 80' s with any exertion and it was also quite low at night. Since you have not been smoking the oxygen level has improved and now you do not need the oxygen during the day. You still need to wear it at night when sleeping. We have an appt for you to see the lung doctor and have some pulmonary function tests done. Maybe there is something we can do to improve your breathing so that you can get off the oxygen. NO SMOKING Constance....if you have trouble at home with cravings or if you start smoking again we have a smoking cessation program here at the hospital and all you need to do is call the hospital at [phone] and ask to be connected to the smoking cessation coordiator. 3. With your age and smoking history you are at increased risk for osteoporosis/bone loss which increases the chance of fractures. I check your vitamin D level and it was low so I put you on a supplement. Vitamin D is necessary for your body to absorb calcium to keep the bones strong. I suspect you have osteoporosis and there are medications to help build the bone back up. You should have a bone density test called a DEXA. We do them here at the hospital and Dr. Alvarado or Dr. Bennett can order this for you. 4. I really enjoyed meeting you Constance. You are a strong feisty woman who knows what she wants.......it was a pleasure working with you. Take care of yourself and if you ever need rehab again please consider coming back with us! Allergies/Adverse Reactions: Allergies No Known Allergies Allergy (Verified 06/30/19 19:13) Medications to take at Discharge Acetaminophen [Tylenol] 500 mg PO Q6 tab 07/03/19 Enoxaparin [Lovenox] 40 mg SUBCUT DAILY syringe 07/03/19 Senna/Docusate Sodium [Senokot-S] 2 tab PO BID PRN PRN tab 07/03/19 Cholecalciferol (VIT D3) [Vitamin D3] 2,000 unit PO DAILY #30 tab 07/14/19 traMADol [Ultram] 50 mg PO TID PRN PRN #40 tab 07/14/19 The following prescriptions were given: traMADol [Ultram] 50 mg PO TID PRN PRN #40 tab PRN Reason: pain 4-03/16 Transmission Status: [facility] Cholecalciferol (VIT D3) [Vitamin D3] 2,000 unit PO DAILY #30 tab Transmission Status: [facility] Primary Care Physician: Justino Alvarado [Primary Care Provider] - Test Results: Test results from this visit will be discussed in further detail at your follow- up appointment, if applicable. Please Follow Up With: Dr. Justino Alvarado When: 07/20/19 at 1:50 PM Please Follow Up With: Jean Bennett MD When: Wednesday07/19/19 at 10:15 AM Please Follow Up With: Pulmonary medicine When: we are waiting to hear from them about an appt time. Proposed Discharge Date: 07/14/19
--- NOTE | 2019-07-14 12:45 | PCM.DC.SUM ---
Discharge Date and Diagnosis - Problem List Patient Problems: Active and Suspected Problems (Last Reviewed 07/03/19 @ 16:41 by Ana Alvarez DO) COPD (chronic obstructive pulmonary disease) (Suspected) Respiratory insufficiency (Acute) Abnormal LFTs (Acute) Acetabular fracture (Acute) Inferior pubic ramus fracture (Acute) Date of Admission: 07/03/19 Date of Discharge: 07/14/19 - Primary Discharge Diagnosis Active and Suspected Problems (Last Reviewed 07/03/19 @ 16:41 by Ana Alvarez DO) Acetabular fracture (Acute) Inferior pubic ramus fracture (Acute) Abnormal LFTs (Acute) resolving COPD (chronic obstructive pulmonary disease) (Suspected) Respiratory insufficiency (Acute) with hypoxemia - Secondary Discharge Diagnosis Chronic Problems (Last Reviewed 07/03/19 @ 16:41 by Ana Alvarez DO) Vitamin D deficiency (Chronic) Hx of breast cancer (Chronic) 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 She did not have any chemo or radiation Hx of right mastectomy (Chronic) November 2017 Tobacco dependence (Chronic) started smoking at the age of 55 and she smokes 1/2 PPD. She started smoking to control anxiety. Anxiety (Chronic) GERD (gastroesophageal reflux disease) (Chronic) Diverticulosis (Chronic) Hospital Course and Treatment Imaging Results: Clinical Impression(s) from Imaging Studies Liver Ultrasound 07/05/19 07:30 IMPRESSION: Normal right upper quadrant ultrasound examination. Status post cholecystectomy. Electronically Signed: Reji Bonner, at 8:48 EST , Service support , Laboratory Tests 07/13/19 07/09/19 07/08/19 Range/Units 05:27 05:20 09:40 WBC (4.4-11.0) K/mm3 RBC (4.2-5.4) M/mm3 Hgb (12.0-15.0) g/dL Hct (37-47) % MCV (81-99) fL MCH (27.0-32.0) pg MCHC (32-36) g/dL RDW Std Deviation (35.1-43.9) fl RDW Coeff of Jamel (11.6-14.6) % Plt Count (150-450) K/mm3 MPV (6.2-12.0) fl Sodium 140 139 (136-145) mmol/L Potassium 3.7 4.0 (3.5-5.1) mmol/L Chloride 105 106 (98-107) mmol/L Carbon Dioxide 31.0 29.0 (21.0-32.0) mmol/L Anion Gap 4 L 4 L (5-15) BUN 16 29 H (7-18) mg/dL Creatinine 0.83 1.12 H (0.55-1.02) mg/dL Estim Creat Clear Calc 40.62 30.10 ml/min Est GFR (MDRD) Af Amer 85 60 (>60) mL/min Est GFR (MDRD) Non-Af 70 49 L (>60) mL/min BUN/Creatinine Ratio 19.4 25.9 H (10-20) RATIO Glucose 90 109 H (74-106) mg/dL Calcium 8.9 9.9 (8.5-10.1) mg/dL Phosphorus (2.5-4.9) mg/dL Magnesium (1.6-2.6) mg/dL Total Bilirubin 0.30 (0.20-1.00) mg/dL AST 40 H (15-37) U/L ALT 124 H (13-56) U/L Alkaline Phosphatase 298 H (45-117) U/L Total Protein 8.2 (6.4-8.2) g/dL Albumin 4.0 (3.2-5.0) g/dL Globulin 4.2 (2.2-4.2) g/dL Albumin/Globulin Ratio 1.0 (0.9-2.4) RATIO Triglycerides 102 168 ( - 199) mg/dL Cholesterol 164 186 (200) mg/dL LDL Cholesterol 89 92 (0-130) mg/dL VLDL Cholesterol 20 34 (5-40) mg/dL HDL Cholesterol 55 60 (40 - ) mg/dL Vitamin D 25-Hydroxy (29.95-100.01) ng/mL 07/08/19 07/08/19 07/04/19 Range/Units 05:43 05:43 05:20 WBC (4.4-11.0) K/mm3 RBC (4.2-5.4) M/mm3 Hgb 12.0 (12.0-15.0) g/dL Hct 37.4 (37-47) % MCV (81-99) fL MCH (27.0-32.0) pg MCHC (32-36) g/dL RDW Std Deviation (35.1-43.9) fl RDW Coeff of Jamel (11.6-14.6) % Plt Count (150-450) K/mm3 MPV (6.2-12.0) fl Sodium Cancelled (136-145) mmol/L Potassium Cancelled (3.5-5.1) mmol/L Chloride Cancelled (98-107) mmol/L Carbon Dioxide Cancelled (21.0-32.0) mmol/L Anion Gap Cancelled (5-15) BUN Cancelled (7-18) mg/dL Creatinine Cancelled (0.55-1.02) mg/dL Estim Creat Clear Calc Cancelled ml/min Est GFR (MDRD) Af Amer Cancelled (>60) mL/min Est GFR (MDRD) Non-Af Cancelled (>60) mL/min BUN/Creatinine Ratio Cancelled (10-20) RATIO Glucose Cancelled (74-106) mg/dL Calcium Cancelled (8.5-10.1) mg/dL Phosphorus (2.5-4.9) mg/dL Magnesium (1.6-2.6) mg/dL Total Bilirubin Cancelled (0.20-1.00) mg/dL AST Cancelled (15-37) U/L ALT Cancelled (13-56) U/L Alkaline Phosphatase Cancelled (45-117) U/L Total Protein Cancelled (6.4-8.2) g/dL Albumin Cancelled (3.2-5.0) g/dL Globulin Cancelled (2.2-4.2) g/dL Albumin/Globulin Ratio Cancelled (0.9-2.4) RATIO Triglycerides ( - 199) mg/dL Cholesterol (200) mg/dL LDL Cholesterol (0-130) mg/dL VLDL Cholesterol (5-40) mg/dL HDL Cholesterol (40 - ) mg/dL Vitamin D 25-Hydroxy 24.8 L (29.95-100.01) ng/mL 07/04/19 07/04/19 Range/Units 05:20 05:20 WBC 7.8 (4.4-11.0) K/mm3 RBC 3.67 L (4.2-5.4) M/mm3 Hgb 11.3 L (12.0-15.0) g/dL Hct 35.6 L (37-47) % MCV 97.0 (81-99) fL MCH 30.8 (27.0-32.0) pg MCHC 31.7 L (32-36) g/dL RDW Std Deviation 47.0 H (35.1-43.9) fl RDW Coeff of Jamel 13.1 (11.6-14.6) % Plt Count 437 (150-450) K/mm3 MPV 9.4 (6.2-12.0) fl Sodium 140 (136-145) mmol/L Potassium 4.0 (3.5-5.1) mmol/L Chloride 107 (98-107) mmol/L Carbon Dioxide 28.0 (21.0-32.0) mmol/L Anion Gap 5 (5-15) BUN 24 H (7-18) mg/dL Creatinine 0.89 (0.55-1.02) mg/dL Estim Creat Clear Calc 37.88 ml/min Est GFR (MDRD) Af Amer 78 (>60) mL/min Est GFR (MDRD) Non-Af 64 (>60) mL/min BUN/Creatinine Ratio 26.9 H (10-20) RATIO Glucose 95 (74-106) mg/dL Calcium 9.4 (8.5-10.1) mg/dL Phosphorus 4.0 (2.5-4.9) mg/dL Magnesium 2.0 (1.6-2.6) mg/dL Total Bilirubin 0.40 (0.20-1.00) mg/dL AST 111 H (15-37) U/L ALT 176 H (13-56) U/L Alkaline Phosphatase 242 H (45-117) U/L Total Protein 6.9 (6.4-8.2) g/dL Albumin 3.1 L (3.2-5.0) g/dL Globulin 3.8 (2.2-4.2) g/dL Albumin/Globulin Ratio 0.8 L (0.9-2.4) RATIO Triglycerides ( - 199) mg/dL Cholesterol (200) mg/dL LDL Cholesterol (0-130) mg/dL VLDL Cholesterol (5-40) mg/dL HDL Cholesterol (40 - ) mg/dL Vitamin D 25-Hydroxy (29.95-100.01) ng/mL none Operations: None Procedures: None Summary of Care Provided: The patient is a 83 year old F with a past medical history of tobacco dependence, GERD, ductal carcinoma in situ of the right breast diagnosed in 2017, mastectomy in November 2017, colon polyps and diverticulosis admitted to the Inpatient rehab unit at [facility] on 07/03/2019 for debility secondary to left acetabular fracture and left inferior pubic ramus fracture sustained in a fall for greater than 3 hours of therapy daily with a goal of returning home at or near prior level of independence. The patient lives at home by herself and has 2 steps to get into her house. She has a two-story house but has not been up to the second level in months. Her bedroom is on the first floor. She has not driven for the past 8 years because she states she does not trust herself to drive. The patient was independent with ADL's and mobility prior to the fall. She does her own cooking and she does the gardening and takes care of the house by herself. She was seen in consult by Dr. Jean Bennett during her acute hospital stay and treatment will be nonsurgical at this time. She told me at admission that she did not start smoking until she was 55 YOA and it was to help control her anxiety. She smokes 1/2 PPD. On physical examination at admission her breath sounds were noted to be markedly decreased and she had coarse rales on the R side anteriorly that mostly resolved after a few deep breaths. There was no wheezing and she had symmetric chest expansion, she had tenderness to palpation of the L chest......this started after the fall. Her MM were dry. The remainder of the PE was unremarkable. Lab at admission to the rehab unit showed a white blood cell count of 7.8, hemoglobin of 11.3 with normochromic normocytic indices and a normal platelet count. CMP showed an elevated BUN at 24 with a creatinine of 0.89 and a BUN/creatinine ratio of 26.9. AST was elevated at 111, ALT was 176 and the alkaline phosphatase was 242. The bilirubin was within normal limits. An ultrasound of the liver was obtained and it was normal. LFTs were rechecked and were trending down and I suspect the AST and ALT are elevated due to muscle trauma with the fall and the AP was increased due to the fracture. A lipid panel showed triglycerides of 168, total cholesterol of 186, LDL of 92 and an HDL of 60. A vitamin D level was checked and was low at 24.8. She was started on vitamin D supplement. She has never had a DEXA in the past and she is at increased risk for osteoporosis due to age, smoking and Vit D deficiency. I recommended that she discuss having a DEXA as an OP with Dr. Alvarado or Dr. Bennett. She may need a bisphosphonate or SERM going forward. She was dehydrated at admission to the rehab unit and she is still dehydrated at [place] but she is trying to drink more. She is not on a diuretic. She has asymptomatic orthostatic hypotension and this certainly may have contributed to the fall. The oxygen saturation initially in rehab dropped to 81% with activity. An overnight trending pulse ox was done and she desaturates into the low 80's while sleeping. Near the end of her time in rehab the her breathing improved and she was 93% on room air prior to PT and 93% while doing PT and after PT. He still desaturates at night and home oxygen was arranged for her. We are attempting to schedule an appointment with her to follow-up with Dr. Maier from pulmonary medicine to have pulmonary function tests and possibly a sleep study. The patient was counseled regarding smoking cessation while in the hospital and I related to her that I felt the improved oxygenation was due to the fact that she has not been smoking since she fell and fractured her pelvis. She has done well in therapy and she was discharged home on 07/14/19 with [facility]. She has a shower chair and GRAB in the shower were recommended. She has an appt with Dr. Bennett on 07/19/19 and an appt with Dr. Wilde on 07/20/19. She was instructed to try and drink 1500 CC's of fluid daily to avoid dehydration, orthostatic hypotension and future falls. She was given a RX for Tramadol, 50 mg #40, at discharge. Alert and oriented x3 Temp-98.4, pulse rate 71, blood pressure 135/53, respirations 88 and she was 92% on room air and 96% on a 2 L nasal cannula Mucous membranes are dry. Lungs-markedly diminished throughout with no wheezes, rales or rhonchi. She is not tachypneic and has no conversational dyspnea. There is symmetric chest expansion. Heart-regular rate and rhythm, no murmur, no ectopy, no gallop, no rub Abdomen-soft, nontender, nondistended bowel sounds heard in all 4 quadrants No peripheral edema, no calf tenderness, no clubbing and no cyanosis Neuro exam is nonfocal This note was generated with [employer] dictation software. It may contain incorrect words, spelling, and punctuation that were not noted in checking the note before signing. Patient Problems: Active and Suspected Problems (Last Reviewed 07/03/19 @ 16:41 by Ana Alvarez DO) COPD (chronic obstructive pulmonary disease) (Suspected) Respiratory insufficiency (Acute) Abnormal LFTs (Acute) Acetabular fracture (Acute) Inferior pubic ramus fracture (Acute) - Physical Exam Vitals/I&O's: Vital Signs Temp Pulse Resp BP Pulse Ox 98.4 F 71 18 135/53 H 96 07/14/19 08:01 07/14/19 08:01 07/14/19 08:01 07/14/19 08:01 07/14/19 09:36 Oxygen Flow Rate (L/min) 2 Oxygen Delivery Method Nasal Cannula Weight: 116 lb 13.52 oz Body Mass Index (BMI) 21.2 Orthostatic Vital Signs Start: 07/13/19 06:04 Freq: Status: Active Protocol: Activity Type Activity Date Activity User E-Sign Co-Sign Detail Recorded Client Recorded Date Recorded By Document 07/13/19 06:04 CDA [id number] 07/13/19 06:14 CDA 07/13/19 06:04 Orthostatic Vitals Standing -Blood Pressure (90/60-120/80 mm Hg) 109/50 L -Extremity Use Left Arm -Pulse Rate (60-100 beats/min) 77 Sitting -Blood Pressure (90/60-120/80 mm Hg) 111/67 -Extremity Use Left Arm -Pulse Rate (60-100 beats/min) 70 Lying -Blood Pressure (90/60-120/80 mm Hg) 141/67 H -Extremity Use Left Arm -Pulse Rate (60-100 beats/min) 65 Intake and Output for Last 24 Hours 07/12/19 07/13/19 07/14/19 23:59 23:59 23:59 Intake Total 900 / 900 840 / 840 360 / 360 Output Total 125 / 125 700 / 700 Balance 775 / 775 140 / 140 360 / 360 Current Medications Acetaminophen (Tylenol) 1,000 mg PO Q8H PRN PRN PRN Reason: pain 1-5 Last Admin: 07/09/19 01:30 Dose: 1,000 mg Documented by: Bisacodyl (Dulcolax) 10 mg RECTAL .PRN X 1 PRN PRN Reason: Constipation Last Admin: 07/07/19 23:48 Dose: 10 mg Documented by: Bisacodyl (Dulcolax) 10 mg PO DAILY PRN PRN PRN Reason: Constipation Last Admin: 07/07/19 20:16 Dose: 10 mg Documented by: Cholecalciferol (Vitamin D) 2,000 unit PO DAILY [facility] Last Admin: 07/14/19 08:08 Dose: 2,000 unit Documented by: Enoxaparin Sodium (Lovenox) 40 mg SC DAILY@0600 [facility] Last Admin: 07/14/19 05:09 Dose: 40 mg Documented by: Famotidine (Pepcid) 20 mg PO BID [facility] Last Admin: 07/14/19 08:08 Dose: 20 mg Documented by: Lorazepam (Ativan) 0.5 mg PO QHS PRN PRN PRN Reason: INSOMNIA Magnesium Hydroxide (Milk Of Magnesia) 30 ml PO .PRN X 1 PRN PRN Reason: Constipation Last Admin: 07/07/19 17:58 Dose: 30 ml Documented by: Polyethylene Glycol (Miralax) 17 gm PO DAILY [facility] Last Admin: 07/14/19 08:08 Dose: Not Given Documented by: Tramadol HCl (Ultram) 50 mg PO TID PRN PRN PRN Reason: pain 4-10/10 Last Admin: 07/13/19 02:16 Dose: 50 mg Documented by: Discharge Activity: May Not Drive, May Shower, Use Walker, - - activity as tolerated Weight Bearing Status: Partial weight bearing - Left leg Keep extremity elevated above heart level: Left Leg Additional Activity Instructions:: Do your exercises given to you by the therapists twice a day.......this will keep you strong and help prevent falls in the future. Call your doctor if you observe: Fever of 101 or Higher, Numbness or Tingling, Inability to urinate, Inability to have a bowel movement, Shortness of breath, Dizziness, Fainting spells, Swelling in the ankles, Chest pain, Calf discomfort, Uncontrolled pain Home Medications: Medications to take at Discharge Acetaminophen [Tylenol] 500 mg PO Q6 tab 07/03/19 Enoxaparin [Lovenox] 40 mg SUBCUT DAILY syringe 07/03/19 Senna/Docusate Sodium [Senokot-S] 2 tab PO BID PRN PRN tab 07/03/19 Cholecalciferol (VIT D3) [Vitamin D3] 2,000 unit PO DAILY #30 tab 07/14/19 Famotidine [Pepcid] 20 mg PO BID #60 tab 07/14/19 traMADol [Ultram] 50 mg PO TID PRN PRN #40 tab 07/14/19 Following Prescrptions Were Given to Patient: Famotidine [Pepcid] 20 mg PO BID #60 tab Transmission Status: Received by [id number] traMADol [Ultram] 50 mg PO TID PRN PRN #40 tab PRN Reason: pain 4-03/16 Transmission Status: Received by [id number] Cholecalciferol (VIT D3) [Vitamin D3] 2,000 unit PO DAILY #30 tab Transmission Status: Received by [id number] Primary Care Physician: Justino Alvarado [Primary Care Provider] - Please Follow Up With: Dr. Justino Alvarado When: 07/20/19 at 1:50 PM Please Follow Up With: Jean Bennett MD When: Wednesday07/19/19 at 10:15 AM Please Follow Up With: Pulmonary medicine When: we are waiting to hear from them about an appt time. Patient Instructions: What Is COPD?, Chronic Lung Disease: Tips for Quitting Smoking, Bone Density Study, What Is Osteoporosis?, Living with Osteoporosis: Preventing Fractures, Living with Osteoporosis: Regular Exercise, Low Blood Pressure (Hypotension) Disposition: Home with Home Health Minutes spent on discharge:: 40 Patient Condition:: Good Medical Necessity - Tobacco Use Smoking Status: Current every day smoker Tobacco Use: Cigarettes Meaningful Use Info Meaningful Use Diagnoses (Choose all that apply): None applicable Code Visit Inpatient E&M: 20459 Disch Hosp
[2019-07-14 14:00] VITALS: BP 135/53; PULSE 71; RESP 18; TEMP 36.9; O2SAT 92
--- NOTE | 2019-07-14 14:00 | NURSING ---
DC home at this time. Patient and family aware of appointments, smoking cessation program, orders, and oxygen delivery.
== END 2019-07-14 14:00 | disposition home health service (06) | DRG 560 ==
LOC: RU 15:33
PROVIDERS: Admitting Provider Internal Medicine; PCP Family Medicine; Referring Provider Internal Medicine; Visit Provider Internal Medicine
DX: S32.592D Other specified fracture of left pubis, subsequent encounter for fracture with routine healing (principal); J96.11 Chronic respiratory failure with hypoxia; S32.402D Unspecified fracture of left acetabulum, subsequent encounter for fracture with routine healing; W19.XXXD Unspecified fall, subsequent encounter; K21.9 Gastro-esophageal reflux disease without esophagitis; F17.210 Nicotine dependence, cigarettes, uncomplicated; F41.9 Anxiety disorder, unspecified; E86.0 Dehydration; I95.1 Orthostatic hypotension; R94.5 Abnormal results of liver function studies; J44.9 Chronic obstructive pulmonary disease, unspecified
CPT/HCPCS: 36415; 76705; 80048; 80053; 80061; 82306; 83735; 84100; 85014; 85018; 85027; 92507; 92523; 92610; 94762; 97110; 97116; 97162; 97166; 97530; 97535

== ENCOUNTER → 2019-07-25 | Outpatient (CLI) | payer MEDICARE, OTHER, SELFPAY ==
[2019-07-17 08:13] VITALS: BMI 20.1
--- NOTE | 2019-07-25 13:09 | BD_ITS ---
STUDY: DUAL ENERGY X-RAY ABSORPTIOMETRY / DXA REASON FOR EXAM: Female, 83 years old. 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 COMPARISON: None. FINDINGS: Lumbar Spine (L1-L4): g/cm2 (0.870) / T-score (-2.7) / Z-score (-0.9) Findings are suggestive of osteoporosis with a high fracture risk. Left Femur Total: g/cm2 (0.528) / T-score (-3.8) / Z-score (-1.6) Left Femoral Neck: g/cm2 (0.540) / T-score (-3.6) / Z-score (-1.3) Right Femur Total: g/cm2 (0.574) / T-score (-3.4) / Z-score (-1.2) Right Femoral Neck: g/cm2 (0.557) / T-score (-3.5) / Z-score (-1.1) BD/Dexa Bone Density Study IMPRESSION: The patient is considered osteoporotic as outlined below according to World Niraj Organization (WHO) criteria with a high fracture risk. Reference Information: The T-score is the number of standard deviations above or below the standard which is normal for young adults at their peak bone mineral density. The World Health Organization (WHO) interprets the T-scores as follows: Above -1 Normal bone density Between -1 and -2.5 Osteopenia Equal to / or below -2.5 Osteoporosis As a practical clinical guideline, osteopenia may be graded as follows: Mild -1 through -1.5 Moderate -1.6 through -2.0 Severe -2.1 through -2.4 The Z-score is the number of standard deviations above or below age-matched controls. A Z-score of less than -1.5 would be considered abnormal. References: 1. NIH Osteoporosis and Related Bone Diseases http://www.osteo.org 2. International Society for Clinical Densitometry http://www.iscd.org 3. National Osteoporosis Foundation http://www.nof.org Electronically Signed: Reji Bonner, at 10:43 EST , Service support ,
== END | disposition home or self-care (01) ==
LOC: OPBD 13:02
PROVIDERS: PCP Family Medicine; Referring Provider Physician Assistant Surgical; Visit Provider Physician Assistant Surgical
DX: S32.592A Other specified fracture of left pubis, initial encounter for closed fracture (principal); N95.9 Unspecified menopausal and perimenopausal disorder
CPT/HCPCS: 77080

== ENCOUNTER → 2020-06-24 09:27 | Outpatient (CLI) | payer MEDICARE, OTHER, SELFPAY ==
[2019-07-17 08:13] VITALS: BMI 20.1
--- NOTE | 2020-06-24 09:30 | RAD_ITS ---
STUDY: X-RAY - ESOPHAGUS (BARIUM SWALLOW) WITH FLUOROSCOPY REASON FOR EXAM: Female, 84 years old. HX OF REFLUX. PREV BREAST CA TECHNIQUE: 19 view(s) of the esophagus were obtained following swallowing of barium. FLUOROSCOPY TIME (if supplied): (0:30) minutes/seconds COMPARISON: None. FINDINGS: There is no demonstrated esophageal foreign body. There is no demonstrated stricture or mucosal abnormality. There is a small hiatal hernia of the fundus of the stomach. The patient ingested a 12 mm tablet of barium without any difficulty. There is atherosclerotic calcification of the aortic arch with tortuosity of the descending aorta. Normal visualized pulmonary parenchyma. There are diffuse degenerative changes of the visualized thoracic spine. RAD/Esophagus Single Contrast IMPRESSION: Small sliding hiatal hernia without gastroesophageal reflux. Electronically Signed: Reji Bonner MD at 15:18 EST , Service support ,
== END ==
PROVIDERS: PCP Family Medicine; Referring Provider Family Medicine; Visit Provider Family Medicine
DX: R13.10 Dysphagia, unspecified (principal)
CPT/HCPCS: 74220

== ENCOUNTER 2020-07-12 15:18 | Outpatient (RCR) | payer MEDICARE, OTHER, SELFPAY ==
[2019-07-17 08:13] VITALS: BMI 20.1
== END 2020-07-12 23:59 ==
LOC: IMMUN 15:18
PROVIDERS: PCP Family Medicine; Referring Provider Family Medicine; Visit Provider Family Medicine
DX: Z23 Encounter for immunization (principal)
CPT/HCPCS: 0011A; 0012A

== ENCOUNTER 2021-11-10 11:06 | Emergency (ER) | payer MEDICARE, OTHER, SELFPAY ==
[2021-11-10 11:09] VITALS: BP 155/55; PULSE 97; RESP 18; TEMP 36.4; O2SAT 100; BMI 21.9
--- NOTE | 2021-11-10 11:53 | EX.ED.DYSGE1 ---
HPI History of Present Illness Chief Complaint: Abd Pain Informant: patient Narrative Narrative: It does take a little effort to get details from this patient. But she started with abdominal pain mostly across the mid lower abdomen last evening. She has vomited twice. She last moved her bowels 3 days ago but states that that is normal. She is passing gas but it sounds like it might be a little bit less. No fevers or chills. No blood in the most recent stool or vomitus. When I ask if she has had abdominal surgery she states she has had a lot. But when I actually get down to the details it sounds like she had a unilateral oophorectomy and cholecystectomy. It sounds like she did not have hysterectomy or appendicitis or any other surgeries. It sounds like she has not had obstruction before. She states she has no history of any medical problems. But her med record does show different. However she is currently on no medications at all. She denies any allergies. [facility] Medical History (Updated 11/10/21 @ 15:[address] Randy Bond MD) Abnormal LFTs Acetabular fracture Anxiety Breast cancer COPD (chronic obstructive pulmonary disease) Dehydration Diverticulosis GERD (gastroesophageal reflux disease) Hx of breast cancer Inferior pubic ramus fracture Respiratory insufficiency Tobacco dependence Vitamin D deficiency Home Medications acetaminophen 500 mg PO Q6 tab 07/03/19 [Rx Last Taken Unknown] enoxaparin 40 mg SUBCUT DAILY syringe 07/03/19 [Rx Last Taken Unknown] sennosides-docusate sodium 2 tab PO BID PRN PRN tab 07/03/19 [Rx Last Taken Unknown] cholecalciferol (vitamin D3) 2,000 unit PO DAILY #30 tab 07/14/19 [Rx Last Taken Unknown] famotidine 20 mg PO BID #60 tab 07/14/19 [Rx Last Taken Unknown] tramadol 50 mg PO TID PRN PRN #40 tab 07/14/19 [Rx Last Taken Unknown] cephalexin 250 mg PO Q6 #40 cap 11/10/21 [Rx Last Taken Unknown] ondansetron 4 mg PO Q8H PRN #10 tab 11/10/21 [Rx Last Taken Unknown] Allergy/AdvReac Type Severity Reaction Status Date / Time No Known Allergies Allergy Verified 11/10/21 11:08 Surgical History Hx of right mastectomy Social History Smoking Status: Former smoker ROS ROS ED Constitutional Constitutional ED: Denies chills or fever(s) Eyes Eyes: Denies blurry vision ENT ENT ED: Denies rhinorrhea or sore throat Cardiovascular Cardiovascular: Denies chest pain or palpitations Respiratory/Chest Respiratory/Chest: Denies cough, dyspnea or sputum Gastrointestinal Gastrointestinal: Reports abdominal pain, nausea and vomiting; Denies constipation, diarrhea or melena Genitourinary Genitourinary ED: Denies dysuria or hematuria Musculoskeletal Musculoskeletal: Denies back pain Integumentary Denies rash Neurologic Neurologic: Denies headache(s) Endocrine Endocrinology: Denies polydipsia or polyuria Allergic/Immunologic Allergic/Immunologic ED: Denies urticaria EXAM Physical Exam Const Vital Signs: 11/10/21 11:09 11/10/21 15:13 Temperature 97.6 F L 100.3 F H Temperature Source Temporal Temporal Pulse Rate 97 86 Respiratory Rate 18 14 Blood Pressure 155/55 H 124/63 H Blood Pressure Mean 88 83 Pulse Ox 100 94 Oxygen Delivery Method Room Air Room Air Positive well nourished and well developed General Appearance ED: well developed and NAD; Negative for cyanotic or diaphoretic HEENT Reports dry mucous membranes HEENT Narrative: Mildly dry mucous membrane Mouth ED: Yes dry mucous membranes Mouth: dry mucous membranes Eyes EOMs intact bilaterally Neck no JVD Resp normal respiratory effort and clear to auscultation bilaterally Effort and Inspection: Negative for pain with movement Auscultation: Negative for rales, rhonchi or wheezes Cardio regular rate and regular rhythm GI GI Narrative: Abdomen does seem a little bit prominent mostly lower abdomen. Bowel sounds were extremely quiet and then had a large amount of higher toned bowel sounds. There is minimal tenderness but what is there is diffuse across the lower abdomen. There is no rebound guarding or mass that I feel. Palpation: soft Back/Spine no CVA tenderness Extremity normal to inspection Neuro oriented x3 Sensorium / Orientation: alert Psych mental status grossly normal Skin no rashes or lesions noted MDM MDM MDM Narrative Medical decision making narrative: Patient's labs show high white count at 19,400. Rest of CBC essentially normal. Electrolytes are overall normal LFTs are good. Lipase is normal. Lactic acid was high at 2.9. Urinalysis was strongly positive for UTI. She had nitrites greater 100 white cells cloudy urine and leukocyte Estrace. CT scan of the abdomen did not show any marked acute abnormalities. There was some biliary ductal dilatation but she is not having pain up there and she has had prior cholecystectomy. I discussed with the patient that with her symptoms, age, white count, lactate and nausea vomiting at home we would recommend that she comes in the hospital. She states she does not want to come in the hospital here. Her daughter states that it was even hard to get her here that there is no way she is going to stay. I explained that I am making the best medical recommendation. I am happy to help her in either way. I will write her meds for nausea in case this comes back. She states it is better now. I offered to give her something eat or drink here she does not want it she states she will eat at home. I will write for antibiotics and Zofran. We discussed reasons to come back and to have a low threshold. Lab Data Attestation: I reviewed the patient's lab results. Labs: Laboratory Results - last 24 hr 11/10/21 11/10/21 11/10/21 13:15 13:15 13:15 WBC 19.4 H RBC 3.91 L Hgb 12.2 Hct 37.7 MCV 96.4 MCH 31.2 MCHC 32.4 RDW Std Deviation 43.9 RDW Coeff of Jamel 12.4 Plt Count 266 MPV 9.9 Immature Gran % (Auto) 0.500 Neut % (Auto) 88.5 H Lymph % (Auto) 2.9 L Evangeline % (Auto) 7.9 Eos % (Auto) 0.0 Baso % (Auto) 0.2 Absolute Neuts (auto) 17.2 H Absolute Lymphs (auto) 0.56 L Nucleated RBC % 0 Differential Comment SCANNED Diff Path Review May foll Sodium 141 Potassium 3.7 Chloride 110 H Carbon Dioxide 26.0 Anion Gap 5 BUN 17 Creatinine 1.15 H Estim Creat Clear Calc 27.77 Est GFR (MDRD) Af Amer 58 L Est GFR (MDRD) Non-Af 48 L BUN/Creatinine Ratio 14.8 Glucose 131 H Lactic Acid 2.9 H* Calcium 8.9 Total Bilirubin 0.40 AST 25 ALT 28 Alkaline Phosphatase 67 Total Protein 7.3 Albumin 3.7 Globulin 3.6 Albumin/Globulin Ratio 1.0 Lipase 84 Urine Color Urine Clarity Urine pH Ur Specific [place] Urine Protein Urine Glucose (UA) Urine Ketones Urine Occult Blood Urine Nitrite Urine Bilirubin Urine Urobilinogen Ur Leukocyte Esterase Urine RBC Urine WBC Ur Squamous Epith Cells Urine Bacteria Urine Mucus 11/10/21 13:26 WBC RBC Hgb Hct MCV MCH MCHC RDW Std Deviation RDW Coeff of Jamel Plt Count MPV Immature Gran % (Auto) Neut % (Auto) Lymph % (Auto) Evangeline % (Auto) Eos % (Auto) Baso % (Auto) Absolute Neuts (auto) Absolute Lymphs (auto) Nucleated RBC % Differential Comment Diff Path Review Sodium Potassium Chloride Carbon Dioxide Anion Gap BUN Creatinine Estim Creat Clear Calc Est GFR (MDRD) Af Amer Est GFR (MDRD) Non-Af BUN/Creatinine Ratio Glucose Lactic Acid Calcium Total Bilirubin AST ALT Alkaline Phosphatase Total Protein Albumin Globulin Albumin/Globulin Ratio Lipase Urine Color Yellow Urine Clarity Sl. Cloudy Urine pH 5.0 Ur Specific [place] 1.015 Urine Protein 100 H Urine Glucose (UA) Normal Urine Ketones Negative Urine Occult Blood 250 H Urine Nitrite Positive H Urine Bilirubin Negative Urine Urobilinogen Normal Ur Leukocyte Esterase 500 H Urine RBC 5-10 SEEN Urine WBC >100 SEEN Ur Squamous Epith Cells 0 SEEN Urine Bacteria 2+ Urine Mucus 0 SEEN Radiography Diagnostic Testing: Clinical Impression(s) from Imaging Studies Abdomen/Pelvis CT 11/10/21 14:11 IMPRESSION: Status post cholecystectomy with the central intrahepatic biliary ductal dilatation. Small cysts in the left ovary. Moderate sized hiatal hernia. Endometrial thickening. Electronically Signed: Reji Bonner MD at 14:30 EDT , Discharge Plan Triage Chief Complaint: Abd Pain Other Complaint: Nausea/Vomiting ED Provider: Randy Bond Dx/Rx/DC Orders Clinical Impression: Acute UTI, Leukocytosis, Elevated lactic acid level, Left against medical advice Instructions: ED CYSTITIS Female Adult Prescriptions: New cephalexin [cephalexin] 250 MG capsule 250 mg PO Q6 Qty: 40 RF: 0 ondansetron 4 mg tablet,disintegrating 4 mg PO Q8H PRN (Reason: nausea and vomiting) Qty: 10 RF: 0 No Action sennosides-docusate sodium 1 TABLET tablet 2 tab PO BID PRN PRN (Reason: Constipation) RF: 0 acetaminophen 500 MG tablet 500 mg PO Q6 RF: 0 enoxaparin 40 MG/0.4 ML syringe 40 mg subcut DAILY RF: 0 tramadol 50 MG tablet 50 mg PO TID PRN PRN (Reason: pain 4-10/10) Qty: 40 RF: 0 cholecalciferol (vitamin D3) 1,000 UNIT tablet 2,000 unit PO DAILY Qty: 30 RF: 0 famotidine 20 MG tablet 20 mg PO BID Qty: 60 RF: 0 Primary Care Provider: Justino Alvarado Referrals: Justino Alvarado DO [Primary Care Provider] - 2 Days Disposition Disposition: Home, Self Care
[2021-11-10] MEDS: Ondansetron 4 MG/2 ML Vial IV (12:18)
[2021-11-10] MEDS: Morphine 2 MG/ML Syringe IV (12:19)
[2021-11-10 13:25] LABS: Absolute Lymphocyte Count 0.56 X10^3/uL (0.83-4.51); Absolute Neutrophil Count 17.2 X10^3/uL (2.0-7.7); Basophil# 0.03 X10^3/uL; Basophil% 0.2 % (0-1); Hematocrit 37.7 % (37-47); Hemoglobin 12.2 g/dL (12.0-15.0); Lymphocyte # 0.56 X10^3/ul (0.83-4.51); Lymphocyte % 2.9 % (19-41); Mean Corp Hgb Conc 32.4 g/dL (32-36); Mean Corpuscular Hgb 31.2 pg (27.0-32.0); Mean Corpuscular Volume 96.4 fL (81-99); Mean Platelet Vol. 9.9 fl (6.2-12.0); Monocyte# 1.53 X10^3/uL; Monocyte% 7.9 % (0-10); NRBC Flagged by Analyzer 0 % (0-5); Neutrophil # 17.19 X10^3/uL (2.7-7.7); Neutrophil % 88.5 % (47-70); POSITIVE DIFFERENTIAL YES; Platelet Count 266 K/mm3 (150-450); RBC Distribution Width CV 12.4 % (11.6-14.6); RBC Distribution Width SD 43.9 fl (35.1-43.9); Red Blood Count 3.91 M/mm3 (4.2-5.4); White Blood Count 19.4 K/mm3 (4.4-11.0)
[2021-11-10 13:27] LABS: Differential Indicated SCAN CRITERIA MET
[2021-11-10 13:30] LABS: Mucous, Urine 0 SEEN /hpf (<or=2+); Squamous Epithelial Cells - UA 0 SEEN /hpf (5-10)
[2021-11-10 13:31] LABS: Color, Urine Yellow (Yellow); Glucose, Dipstick Normal (Normal); Ketone-Dipstick Negative (Negative); Leukocyte Esterase-Dipstick 500 /ul (Negative); Nitrite-Dipstick Positive (Negative); Occult Blood-Urine 250 /ul (Negative); Protein-Dipstick 100 mg/dl (Negative); Specific Gravity, Urine 1.015 (1.002-1.030); Urine Bilirubin Dipstick Negative (Negative); Urine Clarity Sl. Cloudy (Clear); Urine Urobilinogen Normal (Normal)
[2021-11-10 13:37] LABS: Bacteria 2+ /hpf (None Seen); Red Blood Cells-Urine 5-10 SEEN /hpf (0-5); White Blood Cells >100 SEEN /hpf (0-5)
[2021-11-10 13:44] LABS: AST(SGOT) 25 U/L (15-37); Alanine Aminotransfer ALT/SGPT 28 U/L (13-56); Albumin, Serum 3.7 g/dL (3.2-5.0); Alkaline Phosphatase 67 U/L (45-117); Anion Gap 5 (5-15); BUN 17 mg/dL (7-18); BUN/Creat Ratio 14.8 RATIO (10-20); Calcium,Total 8.9 mg/dL (8.5-10.1); Chloride 110 mmol/L (98-107); Creatinine, Serum 1.15 mg/dL (0.55-1.02); Differential Comment SCANNED; EST Glomerular Filtration Rate 48 mL/min (>60); Est Glom Filt Rate - Afr Amer 58 mL/min (>60); Estimated Creatinine Clearance 27.77 ml/min; Globulin 3.6 g/dL (2.2-4.2); Glucose 131 mg/dL (74-106); Lipase 84 U/L (73-393); Potassium 3.7 mmol/L (3.5-5.1); Protein, Total 7.3 g/dL (6.4-8.2); Sodium Level 141 mmol/L (136-145)
[2021-11-10 13:54] LABS: Lactic Acid 2.9 mmol/L (0.4-1.9)
--- NOTE | 2021-11-10 13:54 | ED.RN ---
LAB CALLED LACTIC ACID 2.9.DR MENDEZ
--- NOTE | 2021-11-10 14:11 | CT_ITS ---
STUDY: CT ABDOMEN AND PELVIS WITH CONTRAST REASON FOR EXAM: Female, 86 years old. Abdominal pain with nausea. History of cervical cancer. History of diverticulitis. RADIATION DOSAGE (If Supplied By Facility): CTDIvol = ( 10.99 ) mGy, DLP = ( 583.98 ) mGycm TECHNIQUE: Transaxial images were obtained from the dome of the diaphragm to the symphysis pubis without oral contrast. IV 100mL Isovue-[id number] was administered. Sagittal and coronal images were reconstructed. Individualized dose optimization techniques were used for this CT. COMPARISON: None. FINDINGS: The visualized lung bases are unremarkable. Coronary artery calcification. Mild degree of the dilated central intrahepatic biliary ducts. There is dilatation of the common bile duct down to the level of the ampulla of VATER. I suspect a small duodenal diverticulum. The patient is status post cholecystectomy. Normal spleen. Normal pancreas. Normal bilateral adrenal glands. Normal right kidney. 1.1 cm cyst in the medial inferior aspect of the left kidney. Tiny cyst in the upper pole of the left kidney. There is a moderate hiatal hernia. Normal small intestine. There are multiple colonic diverticula consistent with diverticulosis. The patient is status post appendectomy. There is diffuse atherosclerotic calcification of the abdominal aorta and its major visceral branches, without a demonstrated aneurysm. Normal inferior vena cava. Normal retroperitoneum. Normal urinary bladder. Endometrial thickening measuring 1.7 cm. Normal abdominal wall. There are diffuse degenerative changes of the visualized lumbar spine. Loss of height of the superior endplate of the L5 vertebrae. Dextroscoliosis. CT/Abdomen/Pelvis W IV Cont ONLY IMPRESSION: Status post cholecystectomy with the central intrahepatic biliary ductal dilatation. Small cysts in the left ovary. Moderate sized hiatal hernia. Endometrial thickening. Electronically Signed: Reji Bonner MD at 14:30 EDT ,
[2021-11-10 15:13] VITALS: BP 124/63; PULSE 86; RESP 14; TEMP 37.9; O2SAT 94
[2021-11-10 17:22] LABS: Reflex Lactate? Y
[2021-11-11 13:13] LABS: Pathologist Review Reviewed
== END 2021-11-10 16:08 | disposition home or self-care (01) ==
PROVIDERS: Emergency Provider Emergency Medicine; PCP Family Medicine; Visit Provider Emergency Medicine
DX: N39.0 Urinary tract infection, site not specified (principal); J44.9 Chronic obstructive pulmonary disease, unspecified; R79.89 Other specified abnormal findings of blood chemistry; Z53.29 Procedure and treatment not carried out because of patient's decision for other reasons; F41.9 Anxiety disorder, unspecified; Z85.3 Personal history of malignant neoplasm of breast; K21.9 Gastro-esophageal reflux disease without esophagitis; E55.9 Vitamin D deficiency, unspecified; Z79.899 Other long term (current) drug therapy; Z90.49 Acquired absence of other specified parts of digestive tract; Z87.891 Personal history of nicotine dependence
CPT/HCPCS: 74177; 80053; 81001; 83605; 83690; 85025; 96361; 96365; 96375; 99283; J7030; Q9967; A4216; J2405